=== PATIENT | female | born 1935 | race Caucasian/White ===

== ENCOUNTER → 2020-01-02 11:55 | Outpatient (BNVA) | payer MEDICARE, SELFPAY | PROVIDERS: Family Provider Family Medicine; PCP Family Medicine; Visit Provider Internal Medicine Cardiovascular Disease | DX: I50.33 Acute on chronic diastolic (congestive) heart failure (principal); R06.02 Shortness of breath; Z79.01 Long term (current) use of anticoagulants; Z95.2 Presence of prosthetic heart valve; R07.9 Chest pain, unspecified; I25.10 Atherosclerotic heart disease of native coronary artery without angina pectoris | CPT/HCPCS: 80048; 83880; 85025 ==

== ENCOUNTER 2020-01-18 12:07 | Outpatient (CLI) | payer MEDICARE, SELFPAY ==
--- NOTE | 2020-01-18 12:45 | USCV_ITS ---
Trinity Nassar Age: 84 Gender: F : 1935 Exam Date: 01/18/2020 12:32 Ordering Phys: Danilo Lam MD ([email or web address]) Technologist: Amee Shipley Exam Location: [facility] – [place] Indication: TAVR BP: / HR: 67 Rhythm: Other Technical Quality: Good MEASUREMENTS (Male / Female) Normal Values 2D ECHO LV Diastolic Diameter PLAX 4.4 cm 4.2 - 5.9 / 3.9 - 5.3 cm LV Systolic Diameter PLAX 2.7 cm LV Chamber Size 5.1 cm IVS Diastolic Thickness 1.2 cm 0.6 - 1.0 / 0.6 - 0.9 cm IVS Systolic Thickness 1.1 cm LVPW Diastolic Thickness 1.1 cm 0.6 - 1.0 / 0.6 - 0.9 cm LVPW Systolic Thickness 1.8 cm RV Chamber Size 4.1 cm LVOT Diameter 2.0 cm LV Ejection Fraction 2D Teich 69.1 % LV Ejection Fraction MOD 2C 73.5 % LV Ejection Fraction 2C AL 73.6 % LA Diameter 5.1 cm LA Width 3.4 cm LA Height 5.9 cm RA Width 4.9 cm RA Height 5.7 cm Aorta at Sinotubular Diameter 2.6 cm M-MODE LV Diastolic Diameter MM 5.3 cm 4.2 - 5.9 / 3.9 - 5.3 cm LV Systolic Diameter MM 3.7 cm LV Ejection Fraction MM Teich 57.6 % IVS Diastolic Thickness MM 1.0 cm 0.6 - 1.0 / 0.6 - 0.9 cm IVS Systolic Thickness MM 1.8 cm LVPW Diastolic Thickness MM 0.9 cm 0.6 - 1.0 / 0.6 - 0.9 cm LVPW Systolic Thickness MM 1.5 cm Aortic Annulus Diameter 2.6 cm LA Ao Ratio MM 1.9 MV E Point Septal Separation 0.8 cm DOPPLER AV Peak Velocity 244.0 cm/s LVOT Peak Velocity 103.0 cm/s AV Area Cont Eq vti 1.3 cm squared AV Area Cont Eq pk 1.3 cm squared MV Area PHT 3.2 cm squared Mitral E to A Ratio 2.5 MV E' Velocity 9.0 cm/s Mitral E to MV E' Ratio 14.0 Mitral E to LV E' Lateral Ratio 15.4 Mitral E to LV E' Septal Ratio 12.8 TR Peak Velocity 259.9 cm/s TR Peak Gradient 27.0 mmHg TR Mean Velocity 204.3 cm/s TR Mean Gradient 17.8 mmHg TR Velocity Time Integral 103.9 cm TV Peak E Velocity 73.0 cm/s Right Atrial Pressure 3.0 mmHg Pulmonary Artery Systolic Pressu 30.0 mmHg PV Peak Velocity 77.0 cm/s FINDINGS Left Ventricle Diffuse hypokinesia of the septum and anteroseptal segments. LV ejection fraction around 55%.Grade III/IV diastolic dysfunction (restrictive filling pattern), severely elevated filling pressures. Right Ventricle Normal right ventricular size and systolic function. Right Atrium Moderately increased right atrial size. Left Atrium Moderately increased left atrial size. Mitral Valve Thickened mitral valve. Moderate mitral annular calcification. Mild mitral valve regurgitation. Aortic Valve The bioprosthetic valve the aortic position appears to be well- seated with a peak velocity 2.44 m/s. The aortic valve area calculated to be 1.3 cm squared, based on the VTI Tricuspid Valve [id number] tricuspid valve regurgitation. Pulmonic Valve Thickened pulmonic valve. Mild pulmonary valve regurgitation. Pericardium No pericardial effusion. Aorta Normal aortic annulus size. CONCLUSIONS Diffuse hypokinesia of the septum and anteroseptal segments. LV ejection fraction around 55%. Grade III/IV diastolic dysfunction (restrictive filling pattern), severely elevated filling pressures. The bioprosthetic valve the aortic position appears to be well- seated with a peak velocity 2.44 m/s. The aortic valve area calculated to be 1.3 cm squared, based on the VTI. Moderate biatrial enlargement Thickened mitral valve. Moderate mitral annular calcification. Mild mitral valve regurgitation. [id number] tricuspid valve regurgitation. Thickened pulmonic valve. Mild pulmonary valve regurgitation. 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 Dr Danilo Lam MD FAC (Electronically Signed) Final Date: 18 January 2020 20:51 S
== END 2020-01-18 12:08 | disposition home or self-care (01) ==
LOC: US 12:08
PROVIDERS: PCP Family Medicine; Visit Provider Internal Medicine Cardiovascular Disease
DX: Z95.2 Presence of prosthetic heart valve (principal); R06.02 Shortness of breath; I50.9 Heart failure, unspecified; I08.3 Combined rheumatic disorders of mitral, aortic and tricuspid valves
CPT/HCPCS: 93306

== ENCOUNTER → 2020-02-01 10:38 | Outpatient (BNVA) | payer MEDICARE, SELFPAY | PROVIDERS: PCP Family Medicine; Referring Provider Dermatology; Visit Provider Dermatology | DX: L57.0 Actinic keratosis (principal); Z85.828 Personal history of other malignant neoplasm of skin; L73.8 Other specified follicular disorders; L72.0 Epidermal cyst; L82.1 Other seborrheic keratosis | CPT/HCPCS: 17000; 17003; 99203 ==

== ENCOUNTER → 2020-04-18 12:02 | Outpatient (BNVA) | payer MEDICARE, SELFPAY | PROVIDERS: Family Provider Family Medicine; PCP Family Medicine; Visit Provider Internal Medicine Cardiovascular Disease | DX: R06.02 Shortness of breath (principal); I50.33 Acute on chronic diastolic (congestive) heart failure; Z79.01 Long term (current) use of anticoagulants; Z95.2 Presence of prosthetic heart valve; R07.9 Chest pain, unspecified; I25.10 Atherosclerotic heart disease of native coronary artery without angina pectoris; I10 Essential (primary) hypertension; E78.5 Hyperlipidemia, unspecified | CPT/HCPCS: 80048; 83880 ==

== ENCOUNTER → 2020-05-06 09:17 | Outpatient (BNVA) | payer MEDICARE, SELFPAY | PROVIDERS: PCP Family Medicine; Visit Provider Internal Medicine Cardiovascular Disease | DX: I10 Essential (primary) hypertension (principal); I25.10 Atherosclerotic heart disease of native coronary artery without angina pectoris; R06.02 Shortness of breath; Z95.2 Presence of prosthetic heart valve | CPT/HCPCS: 80048; 83880 ==

== ENCOUNTER 2020-06-01 08:49 | Emergency (ER) | payer MEDICARE, SELFPAY ==
[2020-06-01 08:54] VITALS: BP 128/94; PULSE 113; RESP 18; TEMP 35.8; O2SAT 96; BMI 34.3
--- NOTE | 2020-06-01 08:57 | ED_ITS ---
HPI - Dental/Oral General: Chief complaint: Dental/Oral Stated complaint: MOUTH ABSCESS-COVID+ 2 WKS AGO/[facility] UP 24TH Time Seen by Provider: 06/01/20 08:56 Source: patient Mode of arrival: ambulatory Limitations: no limitations History of Present Illness: HPI Narrative: 84-year-old female comes in with left lower first molar dental pain. Patient also has a blister to the outside area of that tooth. Patient also noted some drainage that was blood-tinged from the area. Patient has been quarantined with diagnosis of Covid for the last 2 weeks. Patient reports no other concerns or symptoms. Review of Systems General: Reports: 10 or more systems reviewed and unremarkable except in HPI and below ENMT: Reports: oral sores PFSH ED PFSH: Medical History (Updated 06/01/20 @ 09:07 by RENY Rosario) Atherosclerosis of coronary artery of [place] heart without angina pectoris Benign essential HTN Dyslipidemia (high LDL; low HDL) History of nonmelanoma skin cancer SOB (shortness of breath) Surgical History H/O aortic valve replacement H/O: hysterectomy History of bladder repair surgery History of cataract removal with insertion of prosthetic lens Hx of CABG Hx of cholecystectomy Hx of total knee replacement S/P rotator cuff repair S/P TAVR (transcatheter aortic valve replacement) Family History Other CAD (coronary artery disease) Diabetes Social History Smoking and tobacco status: former smoker Alcohol intake: never Physical Exam Const: COMMON NORMALS: no acute distress and patient oriented x3 GENERAL APPEARANCE: cooperative HENMT: COMMON NORMALS: normocephalic, TM's normal bilaterally and Normal external nose present HEAD & SCALP: normal to inspection and normocephalic NOSE: Normal external nose present TYMPANIC MEMBRANE: TM's normal bilaterally MOUTH: Normal oral and palatal mucosa present and other (Gingival abscess noted to the first molar lateral side left lower jaw) THROAT: posterior oropharynx normal Eye: GENERAL EYE: appearance normal, both eyes and all related structures Neck/C-Spine: COMMON NORMALS: full ROM Lymph: LYMPHATIC: no lymphadenopathy noted Chest: COMMONS NORMALS: normal inspection of the chest Resp: COMMON NORMALS: normal respiratory effort EFFORT & INSPECTION: Yes able to speak in complete sentences Cardio: COMMON NORMALS: regular rate and regular rhythm RATE: regular rate RHYTHM: regular rhythm GI: COMMON NORMALS: non-tender Extremity: COMMON NORMALS: normal to inspection Neuro: COMMON NORMALS: patient oriented x3 and moves all extremities Psych: COMMON NORMALS: mental status grossly normal and cooperative Skin: COMMON NORMALS: no rashes or lesions noted GENERAL SKIN EXAM: no rashes or lesions noted Course Vital Signs: Vital signs: Vital Signs Temperature 96.4 F L 06/01/20 08:54 Pulse Rate 113 H 06/01/20 08:54 Respiratory Rate 18 06/01/20 08:54 Blood Pressure 128/94 06/01/20 08:54 Pulse Oximetry 96 06/01/20 08:54 MDM - Dental/Oral MDM Narrative: Medical decision making narrative: Patient comes in with a dental lesion and tenderness to the left lower jaw at the first molar. Vital signs are stable. Respirations are even. Lungs clear to auscultation. Heart rates regular. Differential diagnosis includes but not limited to dental abscess, odontalgia, dental caries. Exam notes dental abscess. Reviewed medications with patient she denies allergy to amoxicillin or Augmentin. Patient will be given Augmentin twice a day for 10 days. Patient was recom mended to follow-up with dentist for further evaluation and treatment. Patient reported understanding. Discharge Plan Discharge Patient Disposition: Home Clinical Impression: Abscess, periapical Condition: Stable Prescriptions: New Augmentin 875-125 mg tablet 1 tab PO BID Qty: 20 RF: 0 No Action nitroglycerin [Nitrostat] 0.4 mg tablet, sublingual 0.4 mg SUBLINGUAL Q5M PRNRF: 0 metformin 500 mg tablet 500 mg PO DAILY RF: 0 pioglitazone 30 mg tablet 30 mg PO DAILY RF: 0 montelukast 10 mg tablet 10 mg PO DAILY RF: 0 Prilosec OTC 20 mg tablet,delayed release (DR/EC) 20 mg PO DAILY RF: 0 albuterol sulfate [ProAir HFA] 90 mcg/actuation HFA aerosol inhaler 2 puff INHALATION Q6H PRNRF: 0 fluticasone propionate [Flonase Allergy Relief] 50 mcg/actuation spray,suspension 2 spray INTRANASAL DAILY RF: 0 levothyroxine [Synthroid] 125 mcg tablet 125 mcg PO DAILY RF: 0 venlafaxine [Effexor XR] 75 mg capsule,extended release 24hr 75 mg PO DAILY RF: 0 Lantus U-100 Insulin 100 unit/mL solution 100 unit SUBCUT DAILY RF: 0 rosuvastatin 5 mg tablet 5 mg PO DAILY Qty: 90 RF: 3 losartan 100 mg tablet 100 mg PO DAILY Qty: 90 RF: 3 amlodipine 10 mg tablet 10 mg PO DAILY Qty: 90 RF: 3 fenofibrate nanocrystallized 145 mg tablet 145 mg PO DAILY Qty: 90 RF: 3 warfarin 3 mg tablet 3 mg PO DAILY RF: 0 metoprolol tartrate 25 mg tablet 25 mg PO BID Qty: 180 RF: 3 furosemide 80 mg tablet 80 mg PO DAILY Qty: 90 RF: 0 potassium chloride 10 mEq capsule, extended release 20 meq PO BID Qty: 120 RF: 3 Bystolic 5 mg tablet 5 mg PO DAILY Qty: 90 RF: 3 Discharge Orders: Discharge ED (Routine); Ordered 06/01/20 Ordered By: John Stewart Referrals: Stephon Lassiter MD [Primary Care Provider] - Discharge Diet: Usual diet Discharge Activity: Increase activity as tolerated Patient Instructions: Dental Abscess (ED) Activity Restrictions/Additional Instructions: Take medication with food on stomach twice a day for the next 10 days. Follow- up with dentist for further treatment and evaluation. Drink plenty of water with medications. Use acetaminophen or ibuprofen as needed for pain. Return to the emergency department for new concerns. Coding Level of Care Code ED Septic Tank Service Technician for Ashlie Tang
[2020-06-01] MEDS: amoxicillin-clav 875-125 mg Tablet 1 TAB PO (09:41)
[2020-06-01 09:49] VITALS: RESP 18
== END 2020-06-01 09:45 | disposition home or self-care (01) ==
LOC: ER 09:15
PROVIDERS: Emergency Provider Nurse Practitioner Family; PCP Family Medicine
DX: K04.7 Periapical abscess without sinus (principal); Z79.01 Long term (current) use of anticoagulants; Z79.4 Long term (current) use of insulin; I25.10 Atherosclerotic heart disease of native coronary artery without angina pectoris; I10 Essential (primary) hypertension; E78.5 Hyperlipidemia, unspecified; Z95.1 Presence of aortocoronary bypass graft; Z87.891 Personal history of nicotine dependence
CPT/HCPCS: 12345; 99281; 99282

== ENCOUNTER 2021-05-24 10:25 | Emergency (ER) | payer MEDICARE, SELFPAY ==
[2021-05-24 10:41] VITALS: PULSE 94; RESP 18; O2SAT 97; BMI 34.3
[2021-05-24 10:50] VITALS: PULSE 94; RESP 18; O2SAT 97
--- NOTE | 2021-05-24 11:48 | W.ED.GENADLT ---
Documented by User: RENY Hirsch 05/24/21 13:14 HPI - General Adult General: Chief complaint: General Medical Stated complaint: SENT FROM DR LASSITER FOR THIN BLOOD Time Seen by Provider: 05/24/21 10:51 History of Present Illness: HPI narrative: Patient presents with INR that is high as per Dr. Lassiter's office. Patient has been off her Coumadin for 4 days. INR last checked yesterday. Patient also has a wound to her right lower leg she like to have checked out. Denies any other current problems. Onset (ago): day(s) Associated symptoms: Deny chest pain, dyspnea, headache(s), nausea, rash or vomiting Review of Systems Narrative: Patient with a high INR Const: Denies: fever(s), chills or body aches Eyes: Denies: change in vision or blurry vision ENMT: Denies: throat pain or nasal congestion Card: Denies: chest pain or dyspnea on exertion Resp: Denies: dyspnea, productive cough or non-productive cough GI: Denies: abdominal pain, nausea or vomiting Musc: Denies: extremity pain Skin/Breast: Reports: erythema (Right lower extremity from her dog striking her quiñones with his Paw); Denies: rash Neuro: Denies: headache(s) Psych: Denies: anxiety or depression Jackson/Lymph: Denies: easy bruising PFSH ED PFSH: Medical History (Updated 05/24/21 @ 13:11 by RENY Hirsch) Atherosclerosis of coronary artery of [place] heart without angina pectoris Benign essential HTN Dyslipidemia (high LDL; low HDL) History of nonmelanoma skin cancer SOB (shortness of breath) Surgical History H/O aortic valve replacement H/O: hysterectomy History of bladder repair surgery History of cataract removal with insertion of prosthetic lens Hx of CABG Hx of cholecystectomy Hx of total knee replacement S/P rotator cuff repair S/P TAVR (transcatheter aortic valve replacement) Family History Father CAD (coronary artery disease) Chronic kidney disease (CKD) Diabetes Mother CAD (coronary artery disease) Cancer Sister Diabetes Brother Diabetes Denies family history of Clotting disorder Dementia Suicide Anesthesia complication Bleeding disorder Lung disease Stroke Social History Smoking and tobacco status: never smoked Alcohol intake: never Physical Exam Const: COMMON NORMALS: no acute distress GENERAL APPEARANCE: cooperative Resp: COMMON NORMALS: normal respiratory effort Neuro: COMMON NORMALS: moves all extremities Skin: OTHER: Mild redness around wound on right quiñones. No erythema noted. Small hemorrhage of blood vessel surrounding the wound. Wound approximately 4 mm in width and 1 cm in length and has thickened scab Course Vital Signs: Vital signs: Vital Signs Pulse Rate 94 05/24/21 13:41 Respiratory Rate 18 05/24/21 13:41 Pulse Oximetry 97 05/24/21 13:41 MDM - General Adult MDM Narrative: Medical decision making narrative: Patient referred to the ER for elevated INR. Patient has no evidence of any bleeding. Lab was not able to obtain a blood sample on her despite repeated attempts by the lab and by nursing staff. Obtain INR from [facility] which was done on 1209 which showed an INR is 17. Patient has been off her Coumadin for 4 days. Patient was given per chest guidelines 2.5 mg of vitamin K orally and told to stay off of Coumadin until restarted by Dr. Lassiter and she is ready return to his office on Wednesday for reevaluation of INR. Patient also has an abrasion to her right lower extremity which was treated with antibiotic and advisement of put Vaseline on it. Lab Data: Labs: Lab Results 05/24/21 05/24/21 12:28 12:30 WBC 6.2 10^3/uL 10^3/ uL (4.0-10.0) RBC 4.34 10^6/uL 10^6 /uL (4.1-5.3) Hgb 12.3 g/dL g/dL (11.5-15.3) Hct 38.2 % % (37.0-47.0) MCV 88.0 fl fl (81-99) MCH 28.3 pg pg (28.0-34.0) MCHC 32.2 g/dL g/dL (30.0-36.0) RDW 17.1 % H % (12.1-15.1) Plt Count 228 10^3/cmm 10^3 /cmm (130-400) MPV 10.3 fL fL (7.4-10.4) Neut % (Auto) 65.7 % % Lymph % (Auto) 17.6 % % [place] % (Auto) 12.3 % % Eos % (Auto) 2.9 % % Baso % (Auto) 1.0 % % Neut # (Auto) 4.07 10^3/uL 10^3 /uL (1.8-7.7) Lymph # (Auto) 1.1 10^3/uL 10^3/ uL (0.8-4.8) [place] # (Auto) 0.8 10^3/uL 10^3/ uL (0.2-0.9) Eos # (Auto) 0.2 10^3/uL 10^3/ uL (0.0-0.8) Baso # (Auto) 0.1 10^3/uL 10^3/ uL (0.0-0.1) Nucleated RBC % (a uto) 0 % % Nucleated RBCs # 0.0 /100WBC /100W BC Vitamin K Cancelled Discharge Plan Discharge Patient Disposition: Home Clinical Impression: Elevated INR, Abrasion Condition: Stable Prescriptions: New clindamycin HCl 300 mg capsule 300 mg PO Q8H 7 Days Qty: 21 RF: 0 No Action metformin 500 mg tablet 500 mg PO DAILY RF: 0 pioglitazone 30 mg tablet 30 mg PO DAILY RF: 0 montelukast 10 mg tablet 10 mg PO DAILY RF: 0 Prilosec OTC 20 mg tablet,delayed release (DR/EC) 20 mg PO DAILY RF: 0 albuterol sulfate [ProAir HFA] 90 mcg/actuation HFA aerosol inhaler 2 puff INHALATION Q6H PRNRF: 0 fluticasone propionate [Flonase Allergy Relief] 50 mcg/actuation spray,suspension 2 spray INTRANASAL DAILY RF: 0 levothyroxine [Synthroid] 125 mcg tablet 125 mcg PO DAILY RF: 0 venlafaxine [Effexor XR] 75 mg capsule,extended release 24hr 75 mg PO DAILY RF: 0 Lantus U-100 Insulin 100 unit/mL solution 100 unit SUBCUT DAILY RF: 0 nebivolol 5 mg tablet 5 mg PO DAILY Qty: 90 RF: 3 nitroglycerin [Nitrostat] 0.4 mg tablet, sublingual 0.4 mg SUBLINGUAL Q5M PRN (Reason: chest pain) Qty: 50 RF: 1 rosuvastatin 5 mg tablet 5 mg PO DAILY Qty: 90 RF: 3 warfarin 3 mg tablet 3 mg PO DAILY Qty: 90 RF: 3 fenofibrate nanocrystallized 145 mg tablet See Rx Instructions .ROUTE .COMPLEX Qty: 90 RF: 3 furosemide 80 mg tablet 80 mg PO DAILY Qty: 90 RF: 3 metoprolol tartrate 25 mg tablet 25 mg PO BID Qty: 180 RF: 3 amlodipine 10 mg tablet 10 mg PO DAILY Qty: 90 RF: 3 losartan 100 mg tablet 100 mg PO DAILY Qty: 90 RF: 3 Discharge Orders: Discharge ED (Routine); Ordered 05/24/21 Ordered By: Neeraj Mackay Referrals: Stephon Lassiter MD [Primary Care Provider] - Discharge Diet: Usual diet Discharge Activity: Resume usual activity Patient Instructions: Abrasion (ED) Activity Restrictions/Additional Instructions: Stay off Coumadin until Dr. Lassiter decides to put you back on that. Contact his office on Wednesday and get a repeat INR blood test done. If you have any signs of bleeding please return the ER or contact Dr. Lassiter's office. Put petroleum jelly and/or Vaseline on the right lower extremity do not put triple antibiotic on it. Coding Level of Care Code ED Sales Relationship Manager for Chg Fwd Exam Expanded Problem Focused Documented by User: Josue Luna DO 05/26/21 07:09 HPI - General Adult General: Chief complaint: General Medical Stated complaint: SENT FROM DR LASSITER FOR THIN BLOOD Time Seen by Provider: 05/24/21 10:51 [facility] ED PFSH: Medical History (Updated 05/24/21 @ 13:11 by RENY Hirsch) Atherosclerosis of coronary artery of [place] heart without angina pectoris Benign essential HTN Dyslipidemia (high LDL; low HDL) History of nonmelanoma skin cancer SOB (shortness of breath) Surgical History H/O aortic valve replacement H/O: hysterectomy History of bladder repair surgery History of cataract removal with insertion of prosthetic lens Hx of CABG Hx of cholecystectomy Hx of total knee replacement S/P rotator cuff repair S/P TAVR (transcatheter aortic valve replacement) Family History Father CAD (coronary artery disease) Chronic kidney disease (CKD) Diabetes Mother CAD (coronary artery disease) Cancer Sister Diabetes Brother Diabetes Denies family history of Clotting disorder Dementia Suicide Anesthesia complication Bleeding disorder Lung disease Stroke Social History Smoking and tobacco status: never smoked Alcohol intake: never Course Vital Signs: Vital signs: Vital Signs Pulse Rate 94 05/24/21 13:41 Respiratory Rate 18 05/24/21 13:41 Pulse Oximetry 97 05/24/21 13:41 MDM - General Adult MDM Narrative: Medical decision making narrative: Chart reviewed and patient discussed with midlevel. Agree with assessment and plan. Lab Data: Labs: Lab Results 05/24/21 05/24/21 12:28 12:30 WBC 6.2 10^3/uL 10^3/ uL (4.0-10.0) RBC 4.34 10^6/uL 10^6 /uL (4.1-5.3) Hgb 12.3 g/dL g/dL (11.5-15.3) Hct 38.2 % % (37.0-47.0) MCV 88.0 fl fl (81-99) MCH 28.3 pg pg (28.0-34.0) MCHC 32.2 g/dL g/dL (30.0-36.0) RDW 17.1 % H % (12.1-15.1) Plt Count 228 10^3/cmm 10^3 /cmm (130-400) MPV 10.3 fL fL (7.4-10.4) Neut % (Auto) 65.7 % % Lymph % (Auto) 17.6 % % [place] % (Auto) 12.3 % % Eos % (Auto) 2.9 % % Baso % (Auto) 1.0 % % Neut # (Auto) 4.07 10^3/uL 10^3 /uL (1.8-7.7) Lymph # (Auto) 1.1 10^3/uL 10^3/ uL (0.8-4.8) [place] # (Auto) 0.8 10^3/uL 10^3/ uL (0.2-0.9) Eos # (Auto) 0.2 10^3/uL 10^3/ uL (0.0-0.8) Baso # (Auto) 0.1 10^3/uL 10^3/ uL (0.0-0.1) Nucleated RBC % (a uto) 0 % % Nucleated RBCs # 0.0 /100WBC /100W BC Vitamin K Cancelled Discharge Plan Discharge Patient Disposition: Home Clinical Impression: Elevated INR, Abrasion Condition: Stable Prescriptions: New clindamycin HCl 300 mg capsule 300 mg PO Q8H 7 Days Qty: 21 RF: 0 No Action metformin 500 mg tablet 500 mg PO DAILY RF: 0 pioglitazone 30 mg tablet 30 mg PO DAILY RF: 0 montelukast 10 mg tablet 10 mg PO DAILY RF: 0 Prilosec OTC 20 mg tablet,delayed release (DR/EC) 20 mg PO DAILY RF: 0 albuterol sulfate [ProAir HFA] 90 mcg/actuation HFA aerosol inhaler 2 puff INHALATION Q6H PRNRF: 0 fluticasone propionate [Flonase Allergy Relief] 50 mcg/actuation spray,suspension 2 spray INTRANASAL DAILY RF: 0 levothyroxine [Synthroid] 125 mcg tablet 125 mcg PO DAILY RF: 0 venlafaxine [Effexor XR] 75 mg capsule,extended release 24hr 75 mg PO DAILY RF: 0 Lantus U-100 Insulin 100 unit/mL solution 100 unit SUBCUT DAILY RF: 0 nebivolol 5 mg tablet 5 mg PO DAILY Qty: 90 RF: 3 nitroglycerin [Nitrostat] 0.4 mg tablet, sublingual 0.4 mg SUBLINGUAL Q5M PRN (Reason: chest pain) Qty: 50 RF: 1 rosuvastatin 5 mg tablet 5 mg PO DAILY Qty: 90 RF: 3 warfarin 3 mg tablet 3 mg PO DAILY Qty: 90 RF: 3 fenofibrate nanocrystallized 145 mg tablet See Rx Instructions .ROUTE .COMPLEX Qty: 90 RF: 3 furosemide 80 mg tablet 80 mg PO DAILY Qty: 90 RF: 3 metoprolol tartrate 25 mg tablet 25 mg PO BID Qty: 180 RF: 3 amlodipine 10 mg tablet 10 mg PO DAILY Qty: 90 RF: 3 losartan 100 mg tablet 100 mg PO DAILY Qty: 90 RF: 3 Discharge Orders: Discharge ED (Routine); Ordered 05/24/21 Ordered By: Neeraj Mackay Referrals: Stephon Lassiter MD [Primary Care Provider] - Discharge Diet: Usual diet Discharge Activity: Resume usual activity Patient Instructions: Abrasion (ED) Activity Restrictions/Additional Instructions: Stay off Coumadin until Dr. Lassiter decides to put you back on that. Contact his office on Wednesday and get a repeat INR blood test done. If you have any signs of bleeding please return the ER or contact Dr. Lassiter's office. Put petroleum jelly and/or Vaseline on the right lower extremity do not put triple antibiotic on it. Coding Level of Care Code ED Sales Relationship Manager for Ashlie Fwd Exam Expanded Problem Focused
[2021-05-24 12:33] LABS: Basophils # 0.1 10^3/uL (0.0-0.1); Eosinophils # 0.2 10^3/uL (0.0-0.8); Eosinophils % 2.9 %; Hematocrit 38.2 % (37.0-47.0); Hemoglobin 12.3 g/dL (11.5-15.3); Lymphocytes # 1.1 10^3/uL (0.8-4.8); Lymphocytes % 17.6 %; Mean Corpuscular HGB Conc 32.2 g/dL (30.0-36.0); Mean Corpuscular Hemoglobin 28.3 pg (28.0-34.0); Mean Platelet Volume 10.3 fL (7.4-10.4); Monocytes # 0.8 10^3/uL (0.2-0.9); Monocytes % 12.3 %; Neutrophils # 4.07 10^3/uL (1.8-7.7); Neutrophils % 65.7 %; Nucleated Red Blood Cells % 0 %; Platelet Count 228 10^3/cmm (130-400); Red Blood Count 4.34 10^6/uL (4.1-5.3); Red Cell Distribution Width 17.1 % (12.1-15.1); White Blood Count 6.2 10^3/uL (4.0-10.0)
[2021-05-24] MEDS: clindamycin 150 mg Capsule PO (13:22)
[2021-05-24] MEDS: phytonadione (ADULT) 10 mg/mL Ampule 1 mL 2.5 MG PO (13:23)
[2021-05-24 13:41] VITALS: PULSE 94; RESP 18; O2SAT 97
== END 2021-05-24 13:41 | disposition home or self-care (01) ==
PROVIDERS: Emergency Provider Nurse Practitioner Family; PCP Family Medicine
DX: R79.89 Other specified abnormal findings of blood chemistry (principal); S80.811A Abrasion, right lower leg, initial encounter; I25.10 Atherosclerotic heart disease of native coronary artery without angina pectoris; I10 Essential (primary) hypertension; E78.5 Hyperlipidemia, unspecified; Z95.1 Presence of aortocoronary bypass graft; X58.XXXA Exposure to other specified factors, initial encounter; Z79.01 Long term (current) use of anticoagulants; Z79.84 Long term (current) use of oral hypoglycemic drugs; Z79.4 Long term (current) use of insulin
CPT/HCPCS: 36415; 85025; 99283; J3430

== ENCOUNTER 2021-06-14 06:00 | Outpatient (RCR) | payer MEDICARE, SELFPAY | END 2021-07-14 23:59 | disposition home or self-care (01) | LOC: SOT 06:00 | PROVIDERS: PCP Family Medicine; Referring Provider Family Medicine; Visit Provider Family Medicine | DX: R26.81 Unsteadiness on feet (principal) | CPT/HCPCS: 97167; 97530 ==

== ENCOUNTER 2021-07-10 13:50 | Outpatient (CLI) | payer MEDICARE, SELFPAY ==
--- NOTE | 2021-07-10 14:00 | USCV_ITS ---
Trinity Nassar Age: 85 Gender: F : 1935 Exam Date: 07/10/2021 14:06 Ordering Phys: Stephon Lassiter MD Technologist: [place] [facility] [place]: CHF BP: 118 / 62 HR: 86 Rhythm: Other Technical Quality: Adequate MEASUREMENTS (Male / Female) Normal Values 2D ECHO LV Diastolic Diameter PLAX 4.8 cm 4.2 - 5.9 / 3.9 - 5.3 cm LV Systolic Diameter PLAX 3.4 cm IVS Diastolic Thickness 1.4 cm 0.6 - 1.0 / 0.6 - 0.9 cm IVS Systolic Thickness 1.2 cm LVPW Diastolic Thickness 1.2 cm 0.6 - 1.0 / 0.6 - 0.9 cm LVPW Systolic Thickness 1.8 cm LV Ejection Fraction 2D Teich 54.2 % LV Ejection Fraction MOD 2C 67.2 % LV Ejection Fraction 2C AL 67.6 % LA Diameter 4.7 cm LA Width 5.1 cm LA Height 6.9 cm RA Width 5.3 cm RA Height 4.9 cm Aorta at Sinotubular Diameter 2.3 cm M-MODE MV E Point Septal Separation 0.7 cm DOPPLER AV Peak Velocity 272.0 cm/s LVOT Peak Velocity 77.0 cm/s MV Peak Velocity 89.0 cm/s MV Area PHT 5.6 cm squared Mitral E to A Ratio 2.2 MV E' Velocity 80.0 cm/s TR Peak Velocity 195.0 cm/s TR Peak Gradient 15.2 mmHg TR Mean Velocity 147.0 cm/s TR Mean Gradient 9.4 mmHg TR Velocity Time Integral 57.6 cm TV Peak E Velocity 86.0 cm/s Right Atrial Pressure 3.0 mmHg Pulmonary Artery Systolic Pressu 18.2 mmHg PV Peak Velocity 100.0 cm/s RV Acceleration Time 0.0 s RV Ejection Time 0.3 s RV AcT/ET 0.1 FINDINGS Left Ventricle Normal left ventricular size and systolic function, EF 67 %. Hypokinetic basal inferior wall segment Right Ventricle The right ventricle is normal in size and function. Right Atrium Moderately increased right atrial size. Left Atrium Moderately increased left atrial size. Mitral Valve Thickened mitral valve. Moderate mitral annular calcification. Mild mitral valve regurgitation. Aortic Valve The bioprosthetic valve at the aortic position appears to be well-seated. Peak velocity the aortic valve was 2.72 m/s. Peak gradient of 29 mmHg. Suggesting moderate aortic valve stenosis. The valve area was not calculated Tricuspid Valve Moderate tricuspid valve regurgitation. Pulmonic Valve Mild pulmonary valve regurgitation. Thickened pulmonic valve Pericardium Prominent coronary sinus Aorta Normal aortic annulus size. CONCLUSIONS Normal left ventricular size and systolic function, EF 67 %. Hypokinetic basal inferior wall segment. Moderate biatrial enlargement. Thickened mitral valve. Moderate mitral annular calcification. Mild mitral valve regurgitation. The bioprosthetic valve at the aortic position appears to be well-seated. Peak velocity the aortic valve was 2.72 m/s with a peak gradient of 29 mmHg Moderate tricuspid regurgitation. Thickened pulmonic valve Normal estimated PA pressure, could be misleading because of the poor Doppler signal Compared to the study from 01/18/2020, there is slight increase in the gradient across the aortic valve. Dr Danilo Lam MD [facility] (Electronically Signed) Final Date: 11 July 2021 00:55 S
== END 2021-07-10 13:51 | disposition home or self-care (01) ==
LOC: RAD 13:54
PROVIDERS: PCP Family Medicine; Visit Provider Family Medicine
DX: I50.9 Heart failure, unspecified (principal); Z95.2 Presence of prosthetic heart valve; I08.1 Rheumatic disorders of both mitral and tricuspid valves
CPT/HCPCS: 93306

== ENCOUNTER → 2021-09-02 14:35 | Outpatient (BNVA) | payer MEDICARE, SELFPAY | PROVIDERS: PCP Family Medicine; Visit Provider Nurse Practitioner Family | DX: I48.91 Unspecified atrial fibrillation (principal); I10 Essential (primary) hypertension; I25.810 Atherosclerosis of coronary artery bypass graft(s) without angina pectoris; Z95.2 Presence of prosthetic heart valve; Z87.891 Personal history of nicotine dependence | CPT/HCPCS: 99214 ==

== ENCOUNTER 2021-11-25 06:00 | Outpatient (CLI) | payer MEDICARE, SELFPAY ==
[2021-11-25 13:47] LABS: Add Urine Microscopic? NO; Charge for UA Resulting for Rev
[2021-11-25 14:47] LABS: Bilirubin Urine Neg (Negative); Blood Urine Neg (Negative); Glucose Urine UA Norm (Normal); Ketones Urine Negative (Negative); Leukocyte Esterase Urine Negative (Negative); Nitrate Urine Negative (Negative); Protein Urine Neg (Negative); Specific Gravity, Urine 1.005 (1.005-1.030); Urine Appearance Clear (CLEAR); Urine Color Straw (Yellow); Urobilinogen Urine Norm (Negative); pH Urine 5 (5-7)
== END 2021-11-25 06:01 | disposition home or self-care (01) ==
LOC: LAB 03-23 20:17
PROVIDERS: PCP Family Medicine; Visit Provider Family Medicine
DX: R82.79 Other abnormal findings on microbiological examination of urine (principal)
CPT/HCPCS: 81003; 87086

== ENCOUNTER 2022-01-04 13:35 | Inpatient (IN) | payer MEDICARE, SELFPAY ==
[2022-01-04] VITALS (7 sets, daily range): BP systolic 125–160; BP diastolic 71–98; PULSE 99–117; RESP 16–24; TEMP 36.4–36.6; O2SAT 94–100; BMI 42.0
--- NOTE | 2022-01-04 14:09 | CTR_ITS ---
PROCEDURE INFORMATION: Exam: CT Head Without Contrast Exam date and time: 01/04/2022 4:46 PM Age: 86 years old Clinical indication: Altered mental status/memory loss; Additional info: AMS TECHNIQUE: Imaging protocol: Computed tomography of the head without contrast. Radiation optimization: All CT scans at this facility use at least one of these dose optimization techniques: automated exposure control; mA and/or kV adjustment per patient size (includes targeted exams where dose is matched to clinical indication); or iterative reconstruction. COMPARISON: CT head wo con* [id number] 02/26/2017 6:38 PM RADIATION DOSE METRICS: Total DLP (mGy-cm): 1063.78 FINDINGS: Brain: Severe calcified intracranial atherosclerotic vessel disease. Mild cerebral atrophy and ischemic leukoencephalopathy. Cerebral ventricles: No ventriculomegaly. Paranasal sinuses: Visualized sinuses are unremarkable. No fluid levels. Mastoid air cells: Visualized mastoid air cells are well aerated. Bones/joints: Unremarkable. No acute fracture. Soft tissues: Unremarkable. CT/CT head wo con* [id number] IMPRESSION: No acute intracranial findings.
--- NOTE | 2022-01-04 14:09 | XRR_ITS ---
PROCEDURE INFORMATION: Exam: XR Chest Exam date and time: 01/04/2022 4:36 PM Age: 86 years old Clinical indication: Other: AMS TECHNIQUE: Imaging protocol: Radiologic exam of the chest. Views: 1 view. COMPARISON: CR Chest 1 [place] [id number] 08/24/2018 1:43 PM FINDINGS: Lungs: Interval development of mild interstitial pulmonary edema. Interval development of compressive atelectasis in the right lower lobe. Pleural spaces: Interval development of a moderate right pleural effusion with pleural fluid extending along the right lateral hemithorax. No pneumothorax. Heart/Mediastinum: Cardiac silhouette is moderately enlarged. Mediastinal contours are unremarkable. Vasculature: Atherosclerotic changes in the visualized arteries. Bones/joints: Unremarkable for age. Organs: Surgical clips in the right upper quadrant, consistent with a previous cholecystectomy. XR/XR chest 1V portable [id number] IMPRESSION: 1. Interval development of mild interstitial pulmonary edema with a moderate right pleural effusion with pleural fluid extending along the right lateral hemithorax and compressive atelectasis in the right lower lobe. 2. Incidental/nonacute findings are listed in the report.
[2022-01-04 14:27] LABS: Glucose Point of Care 91 mg/dL (70-110)
--- NOTE | 2022-01-04 14:33 | W.ED.AMS ---
HPI - Altered Mental Status General: Chief Complaint: Altered Mental Status Stated Complaint: AMS; TINO WEEPING EDEMA LOWER EXT Time Seen by Provider: 01/04/22 13:38 History of Present Illness: Patient is brought in by family with concerns for swelling and redness of both legs as well as increasing mental status changes. States that she has been declining healthwise for a while but over the last 3 days her mental status is significantly declined and she is now becoming more confused throughout the day. Per her son her legs have also changed significantly in the last couple of days. He states the redness and swelling is new and significantly worse today than it was 2 days ago. Review of Systems Const: Denies: fever(s) or body aches Eyes: Denies: change in vision or blurry vision ENMT: Denies: throat pain or odynophagia Card: Denies: chest pain or palpitations Resp: Denies: dyspnea or productive cough GI: Denies: abdominal pain, nausea or vomiting : Denies: flank pain or dysuria Musc: Denies: neck pain or back pain Skin/Breast: Denies: rash or pruritus Neuro: Denies: headache(s) or numbness in extremities Psych: Denies: anxiety or change in appetite Endo: Denies: polyuria or excessive sweating PFSH ED PFSH: Medical History (Updated 01/04/22 @ 17:33 by Faheem Rodriguez MD) Atherosclerosis of coronary artery of [place] heart without angina pectoris Benign essential HTN Dyslipidemia (high LDL; low HDL) History of nonmelanoma skin cancer SOB (shortness of breath) Surgical History H/O aortic valve replacement H/O: hysterectomy History of bladder repair surgery History of cataract removal with insertion of prosthetic lens Hx of CABG Hx of cholecystectomy Hx of total knee replacement S/P rotator cuff repair S/P TAVR (transcatheter aortic valve replacement) Family History Father CAD (coronary artery disease) Chronic kidney disease (CKD) Diabetes Mother CAD (coronary artery disease) Cancer Sister Diabetes Brother Diabetes Denies family history of Clotting disorder Dementia Suicide Anesthesia complication Bleeding disorder Lung disease Stroke Social History Smoking and tobacco status: former smoker Alcohol intake: never Physical Exam Const: COMMON NORMALS: no acute distress OTHER: Patient is awake, she is oriented x1 with some confusion HENMT: COMMON NORMALS: normocephalic and atraumatic HEAD & SCALP: normocephalic and atraumatic Eye: COMMON NORMALS: Equal, round and reactive pupils present and EOMs intact bilaterally PUPIL: Yes Equal, round and reactive pupils present Neck/C-Spine: COMMON NORMALS: full ROM and supple Resp: COMMON NORMALS: normal respiratory effort, No retractions and No use of accessory muscles Cardio: COMMON NORMALS: regular rhythm RHYTHM: regular rhythm OTHER: Tachycardia GI: COMMON NORMALS: Normal to inspection, nondistended, normoactive bowel sounds present, Soft to palpation and non-tender PALPATION: Yes Soft to palpation Back/Pelvis: COMMON NORMALS: thoracic and lumbar spine normal to inspection and no thoracic nor lumbar tenderness Extremity: COMMON NORMALS: normal to inspection and full ROM Skin: NARRATIVE SKIN EXAM: Pitting edema of bilateral lower extremities with erythema of bilateral lower legs that is weeping and hot to touch Course Vital Signs: Vital signs: Vital Signs Temperature 97.6 F 01/04/22 13:39 Pulse Rate 117 H 01/04/22 17:00 Respiratory Rate 22 H 01/04/22 17:00 Blood Pressure 150/86 01/04/22 16:01 Pulse Oximetry 98 01/04/22 17:00 MDM - Altered Mental Status Medical Decision Making Patient is brought in by family with concerns for swelling and redness of both legs as well as increasing mental status changes. States that she has been declining healthwise for a while but over the last 3 days her mental status is significantly declined and she is now becoming more confused throughout the day. Per her son her legs have also changed significantly in the last couple of days. He states the redness and swelling is new and significantly worse today than it was 2 days ago. On physical exam the patient is awake but confused. She is oriented to person. She has swelling, erythema, and weeping of bilateral lower extremities. Her lower legs are somewhat warm to touch. She is mildly tachycardic and has dry mucous membranes. Will check labs, CT, x-ray, and reassess. On reassessment I talked to the patient's family about the test results. I discussed the case with the hospitalist, and we will start antibiotics for likely cellulitis, and admit for further work-up and treatment of her cellulitis, and altered mental status. Lab Data : 01/04/22 15:48 01/04/22 15:48 Laboratory Results WBC 12.5 10^3/uL (4.0-10.0) H 01/04/22 15:48 RBC 3.24 10^6/uL (4.1-5.3) L 01/04/22 15:48 Hgb 9.7 g/dL (11.5-15.3) L 01/04/22 15:48 Hct 30.1 % (37.0-47.0) L 01/04/22 15:48 MCV 92.9 fl (81-99) 01/04/22 15:48 MCH 29.9 pg (28.0-34.0) 01/04/22 15:48 MCHC 32.2 g/dL (30.0-36.0) 01/04/22 15:48 RDW 18.5 % (12.1-15.1) H 01/04/22 15:48 Plt Count 398 10^3/cmm (130-400) 01/04/22 15:48 MPV 9.1 fL (7.4-10.4) 01/04/22 15:48 Neut % (Auto) 82.1 % 01/04/22 15:48 Lymph % (Auto) 6.3 % 01/04/22 15:48 Pershing % (Auto) 10.6 % 01/04/22 15:48 Eos % (Auto) 0.2 % 01/04/22 15:48 Baso % (Auto) 0.4 % 01/04/22 15:48 Neut # (Auto) 10.21 10^3/uL (1.8-7.7) H 01/04/22 15:48 Lymph # (Auto) 0.8 10^3/uL (0.8-4.8) 01/04/22 15:48 Pershing # (Auto) 1.3 10^3/uL (0.2-0.9) H 01/04/22 15:48 Eos # (Auto) 0.0 10^3/uL (0.0-0.8) 01/04/22 15:48 Baso # (Auto) 0.1 10^3/uL (0.0-0.1) 01/04/22 15:48 Nucleated RBC % (auto) 0 % 01/04/22 15:48 Nucleated RBCs # 0.0 /100WBC 01/04/22 15:48 Specimen Type Arterial 01/04/22 15:14 Sample Site Radial, right 01/04/22 15:14 ABG pH 7.41 (7.35-7.45) 01/04/22 15:14 ABG pCO2 46.7 mmHg (35-45) H 01/04/22 15:14 ABG pO2 210.0 mmHg (80.0-100.0) H 01/04/22 15:14 ABG HCO3 29.8 mmol/L (22-26) H 01/04/22 15:14 ABG Base Excess 4.6 mmol/L (-2.0-2.0) H 01/04/22 15:14 Yon Test Pos 01/04/22 15:14 Hematocrit 29.2 % (37-47) L 01/04/22 15:14 O2 Delivery Device Nc 01/04/22 15:14 O2 Liters/Min 5.0 % 01/04/22 15:14 FiO2 40.0 % 01/04/22 15:14 Slitter Scorer Cut Off Operator ID Ed 01/04/22 15:14 Sodium 134 mmol/L (136-145) L 01/04/22 15:48 Potassium 5.2 mmol/L (3.5-5.1) H 01/04/22 15:48 Chloride 94 mmol/L (98-107) L 01/04/22 15:48 Carbon Dioxide 27 mmol/L (22-29) 01/04/22 15:48 Anion Gap 18.2 (5-19) 01/04/22 15:48 BUN 77 mg/dL (8-23) H 01/04/22 15:48 Creatinine 1.5 mg/dL (0.5-0.9) H 01/04/22 15:48 GFR Calculation Not Reportable 01/04/22 15:48 Glucose 103 mg/dL (65-115) 01/04/22 15:48 POC Glucose 91 mg/dL (70-110) 01/04/22 14:23 Calculated Osmolality 301 mOsm/kg (285-295) H 01/04/22 15:48 Calcium 10.9 mg/dL (8.5-10.5) H 01/04/22 15:48 Magnesium 2.2 mg/dL (1.7-2.3) 01/04/22 15:48 Total Bilirubin 0.9 mg/dL (0.15-1.2) 01/04/22 15:48 AST 36 U/L (0-32) H 01/04/22 15:48 ALT 13 U/L (0-33) 01/04/22 15:48 Alkaline Phosphatase 80 IU/L (35-105) 01/04/22 15:48 Ammonia 28 umol/L (11-51) 01/04/22 17:08 Total Protein 8.1 g/dL (6.6-8.7) 01/04/22 15:48 Albumin 3.4 g/dL (3.5-5.2) L 01/04/22 15:48 Globulin 4.7 g/dL (1.3-4.6) H 01/04/22 15:48 Urine Color Straw (Yellow) 01/04/22 15:56 Urine Appearance Clear (CLEAR) 01/04/22 15:56 Urine pH 6 (5-7) 01/04/22 15:56 Ur Specific [employer] 1.005 (1.005-1.030) 01/04/22 15:56 Urine Protein Neg (Negative) 01/04/22 15:56 Urine Glucose (UA) Norm (Normal) 01/04/22 15:56 Urine Ketones Negative (Negative) 01/04/22 15:56 Urine Blood Neg (Negative) 01/04/22 15:56 Urine Nitrate Negative (Negative) 01/04/22 15:56 Urine Bilirubin Neg (Negative) 01/04/22 15:56 Urine Urobilinogen Norm mg/dL (Negative) 01/04/22 15:56 Ur Leukocyte Esterase 1+ (Negative) H 01/04/22 15:56 Urine RBC None /hpf (0-2) 01/04/22 15:56 Urine WBC 5-10 /hpf (0-5) H 01/04/22 15:56 Ur Squamous Epith Cells 0-4 /hpf (0-5) H 01/04/22 15:56 Amorphous Sediment Not Reportable 01/04/22 15:56 Urine Bacteria 1+ /hpf (NONE) H 01/04/22 15:56 Ethyl Alcohol < 10 mg/dL (0-10) 01/04/22 15:48 Discharge Plan Discharge Patient Disposition: Admitted As Inpatient Clinical Impression: Cellulitis, Altered mental status Condition: Stable Coding Level of Care Code ED Miller Apprentice for [employer] Fwd Exam Comprehensive
--- NOTE | 2022-01-04 14:38 | CTR_ITS ---
PROCEDURE INFORMATION: Exam: CT Abdomen And Pelvis With Contrast Exam date and time: 01/04/2022 4:50 PM Age: 86 years old Clinical indication: Abdominal pain; Generalized; Additional info: Generalized abd pain TECHNIQUE: Imaging protocol: Computed tomography of the abdomen and pelvis with contrast. Radiation optimization: All CT scans at this facility use at least one of these dose optimization techniques: automated exposure control; mA and/or kV adjustment per patient size (includes targeted exams where dose is matched to clinical indication); or iterative reconstruction. Contrast material: VISI 320; Contrast volume: 95 ml; Contrast route: INTRAVENOUS (IV); COMPARISON: CT Abdomen/Pelvis Renal [id number] 08/31/2015 8:46 PM RADIATION DOSE METRICS: Total DLP (mGy-cm): 1137.23 FINDINGS: Pleural spaces: Increasing calcifications in the pleura of the right hemithorax that could be due to asbestos related pleural disease versus prior infection. Interval development of a moderate right pleural effusion with right lower lobe compressive atelectasis. Heart: Stable moderate enlargement of the cardiac silhouette. Moderate atherosclerotic calcification in the visualized coronary arteries. The patient has a prosthetic aortic valve. Liver: Stable nodular contour of the liver. Gallbladder and bile ducts: The patient has had an interval cholecystectomy. Dilatation of the biliary ducts, not unexpected in a patient who has had a prior cholecystectomy. Pancreas: The pancreas is unremarkable. No pancreatic ductal dilatation. Spleen: The spleen is unremarkable. Adrenal glands: The right and left adrenal glands are unremarkable. Kidneys and ureters: The right kidney is unremarkable. Two cysts in the left kidney, the larger is increased in size and now measures 1.9 cm (series 3, image 32). The right and left ureters are unremarkable. Stomach and bowel: Numerous diverticula in the sigmoid colon, findings are stable. No evidence for diverticulitis. The stomach is collapsed, which can limit evaluation. No focal abnormality in the stomach otherwise. No acute abnormality in the small bowel. Appendix: Appendix not definitely visualized. No inflammatory changes in the pericecal region however. Intraperitoneal space: Interval development of a small amount of free fluid in the pelvis. No free intraperitoneal air. No loculated fluid collections to suggest an abscess. 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 Stable moderate atherosclerotic calcifications in the visualized arteries. No evidence for aortic aneurysm or aortic dissection. Hepatic veins, portal veins, splenic vein, and SMV are patent. Lymph nodes: No lymphadenopathy. Urinary bladder: The bladder is unremarkable. Reproductive: Stable changes consistent with a previous hysterectomy. The ovaries are not definitely visualized, not an expected in a postmenopausal female. This may be due to ovarian atrophy. Alternatively, the patient may have had a previous bilateral oophorectomy. Bones/joints: Bones are diffusely osteopenic. Degenerative changes in the spine and hips. Soft tissues: No acute abnormality in the extra-abdominal soft tissues. Interval development of moderate body wall edema. CT/CT abdomen pelvis w con* [id number] IMPRESSION: 1. Interval development of a moderate right pleural effusion with right lower lobe compressive atelectasis. 2. Interval development of a small amount of free fluid in the pelvis. 3. Interval development of moderate body wall edema. 4. Increasing calcifications in the pleura of the right hemithorax that could be due to asbestos related pleural disease versus prior infection. 5. 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 6. Stable nodular contour of the liver. 7. The patient has had an interval cholecystectomy. 8. Two cysts in the left kidney, the larger is increased in size. 9. Stable sigmoid diverticulosis. No evidence for diverticulitis. 10. Incidental/nonacute findings are listed in the report.
[2022-01-04 15:25] LABS: ABG PCO2 46.7 mmHg (35-45); ABG PH Result 7.41 (7.35-7.45); Arterial Blood Gas Hematocrit 29.2 % (37-47); Base Excess ABG 4.6 mmol/L (-2.0-2.0); Blood Gas Allen Test Pos; Blood Gas Operator Identificat ED; Blood Gas Sample Site Radial, right; Blood Gas Sample Type Arterial; HCO3 ABG 29.8 mmol/L (22-26); Oxygen Device NC
[2022-01-04 15:56] LABS: Basophils # 0.1 10^3/uL (0.0-0.1); Basophils % 0.4 %; Eosinophils % 0.2 %; Hematocrit 30.1 % (37.0-47.0); Hemoglobin 9.7 g/dL (11.5-15.3); Lymphocytes # 0.8 10^3/uL (0.8-4.8); Lymphocytes % 6.3 %; Mean Corpuscular HGB Conc 32.2 g/dL (30.0-36.0); Mean Corpuscular Hemoglobin 29.9 pg (28.0-34.0); Mean Corpuscular Volume 92.9 fl (81-99); Mean Platelet Volume 9.1 fL (7.4-10.4); Monocytes # 1.3 10^3/uL (0.2-0.9); Monocytes % 10.6 %; Neutrophils # 10.21 10^3/uL (1.8-7.7); Neutrophils % 82.1 %; Nucleated Red Blood Cells % 0 %; Platelet Count 398 10^3/cmm (130-400); Red Blood Count 3.24 10^6/uL (4.1-5.3); Red Cell Distribution Width 18.5 % (12.1-15.1); White Blood Count 12.5 10^3/uL (4.0-10.0)
[2022-01-04 16:17] LABS: Alanine Aminotransferase 13 U/L (0-33); Albumin Level 3.4 g/dL (3.5-5.2); Alkaline Phosphatase 80 IU/L (35-105); Anion Gap 18.2 (5-19); Aspartate Amino Transferase 36 U/L (0-32); Blood Urea Nitrogen 77 mg/dL (8-23); Calcium 10.9 mg/dL (8.5-10.5); Carbon Dioxide 27 mmol/L (22-29); Chloride 94 mmol/L (98-107); Globulin 4.7 g/dL (1.3-4.6); Glucose 103 mg/dL (65-115); Magnesium 2.2 mg/dL (1.7-2.3); Osmolality Calculated 301 mOsm/kg (285-295); Potassium 5.2 mmol/L (3.5-5.1); Sodium 134 mmol/L (136-145); Total Bilirubin 0.9 mg/dL (0.15-1.2); Total Protein 8.1 g/dL (6.6-8.7)
[2022-01-04 16:18] LABS: Alcohol Level < 10 mg/dL (0-10)
[2022-01-04 16:22] LABS: Add Urine Culture? No; Add Urine Microscopic? YES; Bacteria Urine 1+ /hpf; Bilirubin Urine Neg (Negative); Blood Urine Neg (Negative); Glucose Urine UA Norm (Normal); Ketones Urine Negative (Negative); Leukocyte Esterase Urine 1+ (Negative); Nitrate Urine Negative (Negative); Protein Urine Neg (Negative); Specific Gravity, Urine 1.005 (1.005-1.030); Squamous Epithelial Cell Urine 0-4 /hpf (0-5); Urine Appearance Clear (CLEAR); Urine Color Straw (Yellow); Urobilinogen Urine Norm (Negative); pH Urine 6 (5-7)
[2022-01-04] MEDS: iodixanol 320 mg/mL 100mL Btl IV (16:59)
[2022-01-04 17:34] LABS: Ammonia 28 umol/L (11-51)
--- NOTE | 2022-01-04 17:51 | PM.HP ---
Providers/Chief Complaint Primary Care Provider: Stephon Lassiter MD Chief Complaint: AMS; TINO WEEPING EDEMA LOWER EXT History of Present Illness Trinity Nassar is a 86 year old female Pleasant elderly female who has history of triple-vessel CABG 2000, status post TAVR 2018, preserved ejection fraction heart failure, A. fib, chronic anticoagulation who is presenting to the hospital for chief complaint of waxing and waning mentation worsening of edema. Patient lives with her son, son and [id number] are her DPOA. They have not noticed any fever. Patient has not complained of chest pain. Positive orthopnea, weight gain, worsening of swelling of bilateral lower extremities. She does have home health services for wound care. Redness and erythema of legs has been getting worse. Patient is eating very poor quality of life. Medication are being administered by the family. No fever, no COVID-related symptoms. Patient is vaccinated. In the ER she was diagnosed with cellulitis, CHF exacerbation, acute on chronic kidney disease A. fib RVR Review of Systems Const: Reports: chills and body aches Eyes: Denies: change in vision ENMT: Denies: throat pain Card: Reports: swelling of feet/ankles and orthopnea Resp: Reports: dyspnea GI: Reports: abdominal pain : Denies: flank pain Musc: Reports: extremity pain Skin/Breast: Reports: rash, erythema, skin tenderness and skin swelling Neuro: Reports: headache(s) Psych: Reports: anxiety Endo: Denies: polyuria Jackson/Lymph: Denies: easy bruising All/Imm: Denies: urticaria Medications/Allergies Home Medications Medication Instructions Recorded Confirmed Last Taken Type albuterol sulfate 90 mcg/actuation 2 puff INHALATION Q6H PRN 08/17/19 01/04/22 Unknown History aerosol inhaler (ProAir HFA) fluticasone propionate 50 2 spray INTRANASAL DAILY PRN 08/17/19 01/04/22 Unknown History mcg/actuation nasal spray,suspension (Flonase Allergy Relief) levothyroxine 125 mcg tablet 125 mcg PO DAILY 08/17/19 01/04/22 01/04/22 History (Synthroid) montelukast 10 mg tablet 10 mg PO DAILY 08/17/19 01/04/22 01/03/22 History omeprazole magnesium 20 mg 20 mg PO DAILY 08/17/19 01/04/22 01/04/22 History tablet,delayed release (Prilosec OTC) pioglitazone 30 mg tablet 30 mg PO DAILY 08/17/19 01/04/22 01/04/22 History venlafaxine 75 mg capsule,extended 75 mg PO DAILY 08/17/19 01/04/22 01/04/22 History release 24 hr (Effexor XR) nitroglycerin 0.4 mg sublingual 0.4 mg SUBLINGUAL Q5M PRN #50 tab 07/31/20 01/04/22 Unknown Rx tablet (Nitrostat) losartan 100 mg tablet 100 mg PO DAILY #90 tab 05/21/21 01/04/22 01/04/22 Rx insulin glargine 100 unit/mL 10 unit SUBCUT DAILY PRN ml 06/09/21 01/04/22 Unknown History subcutaneous solution (Lantus U-100 Insulin) bumetanide 1 mg tablet 1 mg PO BID 09/02/21 01/04/22 01/04/22 History ropinirole 0.25 mg tablet 0.5 mg PO BEDTIME 09/02/21 01/04/22 01/03/22 History diltiazem HCl 120 mg 120 mg PO DAILY #90 cap 09/03/21 01/04/22 01/04/22 Rx capsule,extended release 24 hr albuterol sulfate 2.5 mg INHALATION Q4H PRN 01/04/22 01/04/22 Unknown History budesonide-formoterol HFA 160 1 puff INHALATION BID 01/04/22 01/04/22 01/04/22 History mcg-4.5 mcg/actuation aerosol inhaler (Symbicort) docusate sodium 100 mg capsule See Rx Instructions .ROUTE .COMPLEX 01/04/22 01/04/22 01/04/22 History (Colace) doxepin 3 mg tablet 3 mg PO BEDTIME 01/04/22 01/04/22 01/03/22 History fenofibrate nanocrystallized 145 145 mg PO DAILY 01/04/22 01/04/22 01/03/22 History mg tablet hydrocodone 5 mg-acetaminophen 325 1 tab PO BID PRN 01/04/22 01/04/22 01/04/22 History mg tablet metformin 500 mg tablet,extended 500 mg PO DAILY 01/04/22 01/04/22 01/04/22 History release 24 hr nebivolol 5 mg tablet 5 mg PO DAILY 01/04/22 01/04/22 01/04/22 History nortriptyline 10 mg capsule 10 - 20 mg PO BEDTIME 01/04/22 01/04/22 01/03/22 History rosuvastatin 5 mg tablet 5 mg PO BEDTIME 01/04/22 01/04/22 01/03/22 History spironolactone 50 mg tablet 50 mg PO DAILY 01/04/22 01/04/22 01/04/22 History warfarin 3 mg tablet See Rx Instructions .ROUTE .COMPLEX 01/04/22 01/04/22 01/03/22 History Allergies Allergy/AdvReac Type Severity Reaction Status Date / Time atorvastatin [From Lipitor] Allergy Unknown unknown Verified 12/10/21 07:39 ibuprofen Allergy Unknown Unknown Verified 12/10/21 07:39 levofloxacin [From Levaquin] Allergy Unknown unknown Verified 12/10/21 07:39 morphine Allergy Unknown unknown Verified 12/10/21 07:39 Penicillins Allergy Unknown unknown Verified 12/10/21 07:39 Sulfa (Sulfonamide Allergy Unknown unknown Verified 12/10/21 07:39 Antibiotics) PFSH Acute PFSH: Medical History (Updated 01/05/22 @ 07:52 by Cristopher Vega MD) Atherosclerosis of coronary artery of [place] heart without angina pectoris Benign essential HTN Dyslipidemia (high LDL; low HDL) History of nonmelanoma skin cancer SOB (shortness of breath) Surgical History H/O aortic valve replacement H/O: hysterectomy History of bladder repair surgery History of cataract removal with insertion of prosthetic lens Hx of CABG Hx of cholecystectomy Hx of total knee replacement S/P rotator cuff repair S/P TAVR (transcatheter aortic valve replacement) Family History Father CAD (coronary artery disease) Chronic kidney disease (CKD) Diabetes Mother CAD (coronary artery disease) Cancer Sister Diabetes Brother Diabetes Denies family history of Clotting disorder Dementia Suicide Anesthesia complication Bleeding disorder Lung disease Stroke Social History Smoking and tobacco status: former smoker Alcohol intake: never Vitals/I&O/Wt Last Vital Signs Temp 97.6 F 01/04/22 13:39 Pulse 117 H 01/04/22 17:00 Resp 22 H 01/04/22 17:00 BP 150/86 01/04/22 16:01 Pulse Ox 98 01/04/22 17:00 Weight last 48 hrs Weight 111.13 kg Physical Exam Narrative: Patient is laying supine Able to tell me her name, date of , name of her son Anxious appearing No active chest pain or shortness of breath CHF exacerbation signs Bilateral lower extremity edema Nonpurulent cellulitis of bilateral lower extremity Skin is sloughing off 3++ pitting edema Extending all the way up to abdominal wall S1, S2 variable Crackles Abdomen soft Nonfocal neuro exam Data : 01/04/22 15:48 01/04/22 15:48 A&P Assessment and plan (1) Cellulitis: Status: Acute (2) Altered mental status: Status: Acute (3) SOB (shortness of breath): Status: Acute (4) CHF exacerbation: Status: Acute (5) Atrial fibrillation with RVR: Status: Acute Plan Preserved ejection fraction heart failure exacerbation Continue diuretics Monitor urine output Strict ins and outs Fluid restriction She also has history of aortic valve replacement Paroxysmal A. fib with RVR Start Cardizem drip She takes Coumadin Acute on chronic kidney disease related to CHF exacerbation Anticipating improvement with diuresis Type 2 diabetes, continue long-acting insulin along sliding scale Nonpurulent cellulitis of bilateral lower extremities Secondary to venous stasis and CHF exacerbation Bacitracin ointment, Kerlix, ABD and Los compression wraps Deconditioned Patient leading a poor quality of life She is DNR/DNI Agreeable to go to alf for rehab Cardiac consistent carb diet And DNR/DNI DVT prophylaxis currently she is on Coumadin Attestations Medical Necessity Statement*: Anticipating more than 2 midnights in the hospital for management of CHF exacerbation and A. fib RVR Time Spent in Patient Care: 40 Coding Level of Care Code Acute Bulb Sorter for Chg Fwd Diagnoses Cellulitis L03.90 Altered mental status R41.82 SOB (shortness of breath) R06.02 CHF exacerbation I50.9 Atrial fibrillation with RVR I48.91
[2022-01-04 18:41] LABS: Procalcitonin 0.25 ng/mL (0-0.5)
--- NOTE | 2022-01-04 18:58 | PC.PHAR ---
Vancomycin is dosed at 1000mg IVPB every 24 hours to produce a predicted trough level of 15.87 (population based pharmacokinetic analysis). A trough level has been ordered from the lab to be obtained before the fourth dose to confirm and adjust if needed.
[2022-01-04 19:23] LABS: Vitamin B12 633 pg/mL (232-1245)
--- NOTE | 2022-01-04 19:25 | PC.NURSE ---
Patient arrived to floor via stretcher and used air mattress to slide with 4 ppl at bedside. Family at bedside and able to answer questions. Patient is AAOx4 but not compliant in wanting to answer questions at this time and is requesting to be left alone. Patient has BLE weeping with pitting edema, elevated. Wearing oxygen tubing. During undress and access patient found to have a stage two pressure injury to each buttock. Mendieta catheter placed without complications and is patent. Room clean and clutter free and report passed to oncoming nurse.
[2022-01-04] MEDS: metoprolol tartrate 25 mg Tablet PO (19:59)
[2022-01-04] MEDS: bumetanide 0.25 mg/mL SDV 4 mL 1 MG IVP (20:05)
[2022-01-04] MEDS: aztreonam 1,000 MG in sodium chloride 0.9% (plus) 50 ML 100 MG IV (20:08)
--- NOTE | 2022-01-04 20:17 | PC.NURSE ---
HR/CARDIZEM DRIP Pt was placed on equipment monitor phototypesetting. HR A-fib with rate ranging from 105-115. Just gave dose of po Metoprolol. If rate continues >110 will be started on a Cardizem drip ordered as needed
[2022-01-04] MEDS: vancomycin 1,000 MG in sodium chloride 0.9% 250 ML 250 MG IV (21:06)
[2022-01-04 22:02] LABS: Glucose Point of Care 115 mg/dL (70-110)
--- NOTE | 2022-01-04 22:31 | ECG_ITS ---
[facility] Test Date: 2022-01-04 Pat Name: Trinity Nassar Department: Room: 252 Gender: Female Trial Judge: : 1935 Requested By: Brain Fields Order Number: [id number] Ned MD: Danilo Lam M.D. Measurements Intervals Sharon Rate: 114 P: UT: QRS: 96 QRSD: 132 T: -36 QT: 321 QTc: 443 Interpretive Statements ATRIAL FIBRILLATION WITH RAPID VENTRICULAR RESPONSE BORDERLINE RIGHT AXIS DEVIATION [QRS AXIS > 90] INTRAVENTRICULAR CONDUCTION DELAY [130+ ms QRS DURATION] ANTEROSEPTAL MYOCARDIAL INFARCTION , OF INDETERMINATE AGE [40+ ms Q WAVE IN V1-V4] Compared to ECG 08/24/2018 19:35:19 Intraventricular conduction delay now present Sinus rhythm no longer present Myocardial infarct finding still present Electronically Signed On 01-05-2022 21:01:01 CDT by Danilo Lam M.D. [id number]
[2022-01-04] MEDS: dilTIAZem 5 mg/mL SDV 5 mL 10 MG IVP (23:04)
--- NOTE | 2022-01-04 23:11 | PC.NURSE ---
UPDATE HR Dr Fields was notified of pts HR continuing to run >110. Is mostly 110-124. Is asyptomatic. EKG was done to confirm A-fib. Telemetry strip looks like ST at times. EKG did show A-fib and pt was given 10mg of IV Cardizem instead of drip at this time. Will continue to monitor
[2022-01-05] VITALS (10 sets, daily range): BP systolic 101–139; BP diastolic 57–87; PULSE 85–121; RESP 14–33; TEMP 36.1–38.1; O2SAT 93–100
[2022-01-05] MEDS: haloperidol inj 5 mg/mL INJ 1 mL 2 MG IM (00:36)
--- NOTE | 2022-01-05 00:39 | PC.NURSE ---
UPDATE HR cont around 120. Has been agitated and is quite confused. Talks to self and calls out for her children. Wants to go home. Order was received for a dose of IM Haldol to see if will help HR. If still >110 in an hour we will repeat Cardizem IV dose then if in another hour remains >110 will start the Cardizem drip
[2022-01-05] MEDS: dilTIAZem 5 mg/mL SDV 5 mL 10 MG IVP (01:49)
--- NOTE | 2022-01-05 02:34 | PC.NURSE ---
UPDATE HR has continued to be >110 after 2nd IV Cardizem dose. Rested for brief time after receiving the IM Haldol but awake now and is very confused. Wants to go home. Says she needs someone to help her get up and go. Attempts to reorient to time and place are unsuccessful. Just starts saying please come help me up, I need to go home over and over. Report given to CSU nurse and preparing to transfer to room 275 for start of Cardizem drip
[2022-01-05] MEDS: haloperidol inj 5 mg/mL INJ 1 mL 1 MG IVP ×2 (04:54→10:57)
[2022-01-05] MEDS: aztreonam 1,000 MG in sodium chloride 0.9% (plus) 50 ML 100 MG IV ×2 (05:46→18:19)
[2022-01-05 06:28] LABS: Glucose Point of Care 93 mg/dL (70-110)
--- NOTE | 2022-01-05 06:33 | PC.NURSE ---
CALL TO FAMILY Call to pts daughter Bruna this am to update on mothers new room number and reason for move
[2022-01-05 09:30] LABS: Basophils % 0.2 %; Hematocrit 28.4 % (37.0-47.0); Hemoglobin 8.6 g/dL (11.5-15.3); Lymphocytes # 0.6 10^3/uL (0.8-4.8); Lymphocytes % 4.3 %; Mean Corpuscular HGB Conc 30.3 g/dL (30.0-36.0); Mean Corpuscular Hemoglobin 29.1 pg (28.0-34.0); Mean Corpuscular Volume 95.9 fl (81-99); Mean Platelet Volume 9.1 fL (7.4-10.4); Monocytes # 1.4 10^3/uL (0.2-0.9); Monocytes % 9.3 %; Neutrophils # 12.63 10^3/uL (1.8-7.7); Neutrophils % 85.4 %; Nucleated Red Blood Cells % 0 %; Platelet Count 389 10^3/cmm (130-400); Red Blood Count 2.96 10^6/uL (4.1-5.3); Red Cell Distribution Width 18.8 % (12.1-15.1); White Blood Count 14.8 10^3/uL (4.0-10.0)
[2022-01-05] MEDS: dilTIAZem ER (24HR) 120 mg Capsule PO (09:30)
[2022-01-05] MEDS: metoprolol tartrate 25 mg Tablet PO ×2 (09:30→16:52)
[2022-01-05] MEDS: levothyroxine 125 mcg Tablet PO (09:30)
[2022-01-05] MEDS: bumetanide 1 mg Tablet PO ×2 (09:30→16:52)
[2022-01-05] MEDS: sennosides-docusate Tablet 1 TAB PO ×2 (09:30→16:52)
[2022-01-05 09:48] LABS: INR 2.09 (0.8-1.2)
--- NOTE | 2022-01-05 09:55 | PC.CHAP ---
Pastoral Care Encounter/Spiritual Assessment Type of Contact [] Declined boat worker visit [] Patient/Family/Request visit [] Outpatient visit [] Follow-up visit [] Physician referral [] Code/Alert [x] Routine visit [] Staff referral [] Actively dying [] Patient sleeping [] Family support [] [] Out of room [] Palliative care [] [x] Receiving care in room [] Pre-surgical visit [] Trauma [] Long length of stay [] ICU visit [] Other: Relational/Emotional Strength [] Patient feels connected with others/family/visitors/staff [] Distress [] Loneliness/isolation [] Abandonment Spirituality of Patient [] Person of Mae [] Attends Moravian of their Mae [] Believes in Prayer [] Reads Bible or Judaism materials [] There are Spiritual issues to be addressed Cytogenetic Technician Interventions [] Prayer [] Active listening [] Non-anxious presence [] Spiritual/emotional support [] Crisis/trauma care [] Spiritual counseling [] Bereavement support [] Provided bereavement packet [] Provided Bible/devotional materials [] Provided toy/stuffed animal, coloring book to patient or family member [] Provided Communion [] Anointing/[place] [] Salvation [] Completed spiritual assessment [] Other: Impact on Illness or Injury [] Angry [] Fearful [] Anxious [] Often cries [] Exhaustion [] Unable to work [] Unable to attend sabianist [] Unable to walk/stand [] Unable to read [] Unable to drive [] Unable to eat/drink [] Unable to sleep [] Unable to be with family [] Patient intubated [] Other: Summary Time spent with patient
[2022-01-05 10:04] LABS: Anion Gap 21.6 (5-19); Blood Urea Nitrogen 70 mg/dL (8-23); Calcium 10.5 mg/dL (8.5-10.5); Carbon Dioxide 22 mmol/L (22-29); Chloride 93 mmol/L (98-107); Glucose 87 mg/dL (65-115); Osmolality Calculated 294 mOsm/kg (285-295); Potassium 4.6 mmol/L (3.5-5.1); Sodium 132 mmol/L (136-145)
--- NOTE | 2022-01-05 12:54 | PM.PN ---
Subjective Subjective: This morning patient was asking for her children to be around her I did call her [id number] and her son to update them Cardizem drip is currently being weaned off heart rate is 87-101 Blood pressure is stable Patient is verbally redirectable She is agitated and stating that she want to go home she has spent enough time in the hospital, When I confronted her and told her that she was just admitted overnight she stated that we guys are making all these kind of statements Vitals/I&O/Wt Last Vital Signs Temp 100.5 F H 01/05/22 04:00 Pulse 101 H 01/05/22 08:00 Resp 18 01/05/22 08:00 BP 125/77 01/05/22 08:00 Pulse Ox 97 01/05/22 08:00 01/04/22 01/05/22 01/05/22 22:59 06:59 14:59 Intake Total 385.417 / 385.417 168 / 168 Output Total 0 / 0 1500 / 1500 Balance 0 / 0 -1114.583 / -1114.583 168 / 168 Weight last 48 hrs Weight 111.13 kg Weight 111.13 kg Physical Exam Narrative: Patient is clinically volume overloaded Currently on 3 to 4 L nasal cannula Edema of her leg slightly improved Hyperemia Currently has [place] wraps Mendieta catheter in place Abdomen soft nontender Currently no audible stridor or wheezing She is verbally redirectable No focal deficit no signs of stroke Urinary Catheter Management: [place]: Cath Placed During This Visit: yes Reason for Continuing Indwelling Catheter: Accurate Measurement of Urinary Output in Critically Ill Patients Urinary Catheter Date of Insertion: 01/04/22 Urinary Catheter Time of Insertion: 18:45 Data : 01/05/22 09:05 01/05/22 09:05 A&P Assessment and plan (1) Atrial fibrillation with RVR: Status: Acute (2) CHF exacerbation: Status: Acute (3) Cellulitis: Status: Acute (4) Altered mental status: Status: Acute (5) S/P TAVR (transcatheter aortic valve replacement): Status: Acute Plan Acute on chronic CHF exacerbation Preserved ejection fraction heart failure exacerbation Continue Bumex 1 mg twice daily Monitor ins and outs Sodium restricted diet Fluid restriction 1200 mL A. fib RVR Cardizem drip being titrated off Will resume her p.o. regimen She takes Coumadin Currently hemodynamically stable Cellulitis of lower extremities I have started her on broad-spectrum antibiotics Low-grade fever noted overnight Kerlix, ABD and compression wraps Dementia? Patient is verbally redirectable Gets agitated easily Prefers to have her children around her B12 is normal, Chronic normocytic anemia hemoglobin stable Leukocytosis I do not believe she is suffering from sepsis This could be leukemoid reaction to her cellulitis INR 2.09 for her Coumadin Cardiac diet DVT prophylaxis sufficed with Coumadin DNR/DNI Attestations Medical Necessity Statement*: Currently patient is awaiting for placement to longterm Time Spent in Patient Care: 30 Coding Level of Care Code Acute Lastex Thread Winder for [facility] Fwd Diagnoses Atrial fibrillation with RVR I48.91 CHF exacerbation I50.9 Cellulitis L03.90 Altered mental status R41.82 S/P TAVR (transcatheter aortic valve replacement) Z95.2
[2022-01-05 13:11] LABS: Glucose Point of Care 116 mg/dL (70-110)
--- NOTE | 2022-01-05 13:48 | PC.PT ---
Eval was attempted. Pt was at 120 bpm HR and O2 kept falling below 80% SaO2. Pt refused to try to move due to being too tired. Family in the room asked us to come back so they could motivate her to do something. Will try again another time.
[2022-01-05] MEDS: LORazepam 0.5 mg Tablet 0.25 MG PO ×2 (14:22→19:49)
[2022-01-05 17:09] LABS: Glucose Point of Care 145 mg/dL (70-110)
--- NOTE | 2022-01-05 17:10 | PC.PT ---
Attempted eval a second time and patient is the same with nurse in the room. Pt's HR was in the 130's and too high to do anything at this time. Will attempt tomorrow.
[2022-01-05] MEDS: insulin lispro 100 unit/1 mL SUBCUT (18:18)
--- NOTE | 2022-01-05 19:35 | PC.NURSE ---
Received bedside report from MARGOTH Ruiz. Performed dressing changes to bilateral lower extremities. Left lower extremity dry with no s/s of bleeding or drainage noted. Right leg appear raw with moderate amount of serous drainage observed. Patient c/o increased pain to right lower extremity with dressing changes. Covered right lower extremity with silver AG dressing, abd, kerlix and ike bandage. Left lower extremity applied abd, kerlix and ike dressing only. Patient tolerated fair. Patient is presenting with increased confusion this night repeating she wants to go home now. Mendieta catheter in placed with noted hematuria. Will continue to monitor.
[2022-01-05] MEDS: quetiapine 25 mg Tablet PO (19:49)
[2022-01-05] MEDS: vancomycin 1,000 MG in sodium chloride 0.9% 250 ML 250 MG IV (19:49)
[2022-01-05 20:15] LABS: Glucose Point of Care 88 mg/dL (70-110)
--- NOTE | 2022-01-05 20:25 | PC.NURSE ---
Found IV pulled out in the covers intact. Patient refusing to have IV replaced at this time. Also presenting with increased confusion. Spoke with patient's son and he mentioned he talked to Dr Vega regarding discharge with hospice. Informed Dr Vega of loss of IV and patient's refusal. Received ok from doctor to leave patient alone and let her rest leaving out IV at this time.
[2022-01-06] VITALS (9 sets, daily range): BP systolic 130–162; BP diastolic 68–87; PULSE 93–121; RESP 11–30; TEMP 36.2–37; O2SAT 96–100
[2022-01-06] MEDS: acetaminophen 500 mg Tablet PO (02:27)
[2022-01-06 08:52] LABS: Basophils % 0.2 %; Eosinophils # 0.2 10^3/uL (0.0-0.8); Eosinophils % 0.7 %; Hematocrit 24.5 % (37.0-47.0); Hemoglobin 8.3 g/dL (11.5-15.3); Lymphocytes # 0.8 10^3/uL (0.8-4.8); Mean Corpuscular HGB Conc 33.9 g/dL (30.0-36.0); Mean Corpuscular Hemoglobin 29.7 pg (28.0-34.0); Mean Corpuscular Volume 87.8 fl (81-99); Monocytes # 1.6 10^3/uL (0.2-0.9); Monocytes % 7.9 %; Neutrophils # 17.89 10^3/uL (1.8-7.7); Neutrophils % 86.6 %; Nucleated Red Blood Cells % 0 %; Platelet Count 366 10^3/cmm (130-400); Red Blood Count 2.79 10^6/uL (4.1-5.3); Red Cell Distribution Width 17.6 % (12.1-15.1); White Blood Count 20.7 10^3/uL (4.0-10.0)
[2022-01-06 09:02] LABS: INR 2.45 (0.8-1.2)
[2022-01-06] MEDS: dilTIAZem ER (24HR) 120 mg Capsule PO (09:11)
[2022-01-06] MEDS: metoprolol tartrate 25 mg Tablet PO ×2 (09:11→18:04)
[2022-01-06] MEDS: levothyroxine 125 mcg Tablet PO (09:11)
[2022-01-06] MEDS: sennosides-docusate Tablet 1 TAB PO ×2 (09:12→18:04)
[2022-01-06] MEDS: bumetanide 1 mg Tablet PO ×2 (09:12→18:04)
[2022-01-06 09:17] LABS: Anion Gap 18.3 (5-19); Blood Urea Nitrogen 71 mg/dL (8-23); Calcium 10.2 mg/dL (8.5-10.5); Carbon Dioxide 24 mmol/L (22-29); Chloride 95 mmol/L (98-107); Glucose 83 mg/dL (65-115); Osmolality Calculated 296 mOsm/kg (285-295); Potassium 4.3 mmol/L (3.5-5.1); Sodium 133 mmol/L (136-145)
--- NOTE | 2022-01-06 10:28 | PC.OT ---
PATIENT DISCHARGING HOME ON HOSPICE. REMOVE FROM OT SERVICES AT THIS TIME
--- NOTE | 2022-01-06 11:53 | PM.PN ---
Subjective Subjective: [place] brown urine Afebrile Leukocytosis worsening Creatinine 1.3 Patient and her family are leaning towards hospice care at home store loss prevention manager has been updated Patient is sitting her abdominal pain has improved after bowel movement Vitals/I&O/Wt Last Vital Signs Temp 98.6 F 01/06/22 11:34 Pulse 106 H 01/06/22 11:34 Resp 26 H 01/06/22 11:34 BP 162/87 01/06/22 11:34 Pulse Ox 100 01/06/22 11:34 01/05/22 01/06/22 01/06/22 22:59 06:59 14:59 Intake Total 534.833 / 702.833 120 / 120 Output Total 600 / 600 400 / 1000 600 / 600 Balance -65.167 / 102.833 -400 / -297.167 -480 / -480 Weight last 48 hrs Weight 111.13 kg Weight 111.13 kg Physical Exam Narrative: Patient is laying supine Mild signs of fluid overload Variable S1-S2 Abdomen is soft No audible stridor mild crackles at base of the lungs Edema of legs improving [place] brown urine Patient is awake and alert oriented able to communicate Urinary Catheter Management: Mendieta: Cath Placed During This Visit: yes Reason for Continuing Indwelling Catheter: Acute Urinary Retention or Obstruction Urinary Catheter Date of Insertion: 01/04/22 Urinary Catheter Time of Insertion: 18:45 Data : 01/06/22 08:10 01/06/22 08:10 Micro: Microbiology 01/05/22 13:00 C.difficile Toxin B Gene (PCR) - Final Stool A&P Assessment and plan (1) Atrial fibrillation with RVR: Status: Acute (2) CHF exacerbation: Status: Acute (3) Cellulitis: Status: Acute (4) Altered mental status: Status: Acute (5) New onset atrial fibrillation: Status: Acute (6) Hospice care: Status: Acute (7) SOB (shortness of breath): Status: Acute (8) Benign essential HTN: Status: Acute Plan 86-year female who presented with worsening shortness of breath She was being diuresed, secondary to comorbid conditions and her poor quality of life patient and family requested hospice care at home She was treated for preserve ejection fraction heart failure exacerbation I will continue her diuretics [place] brown urine worsening creatinine Monitor her urine color for now, might benefit from manual irrigation Continue her diuretics Afebrile Leukocytosis worsened I will continue antibiotics until she is released from the hospital A. fib without RVR holding Coumadin because of hematuria Dementia? Mentation is better today No active metabolic encephalopathy Patient is requesting hospice care at home Will be to resume her medications until she is released from the hospital store loss prevention manager aware Attestations Medical Necessity Statement*: Hospice care at home Time Spent in Patient Care: 30 Coding Level of Care Code Acute Weigh Boss for g Fwd Diagnoses Atrial fibrillation with RVR I48.91 CHF exacerbation I50.9 Cellulitis L03.90 Altered mental status R41.82 New onset atrial fibrillation I48.91 Hospice care Z51.5 SOB (shortness of breath) R06.02 Benign essential HTN I10
[2022-01-06] MEDS: insulin lispro 100 unit/1 mL SUBCUT (13:08)
[2022-01-06 17:21] LABS: Glucose Point of Care 115 mg/dL (70-110)
[2022-01-06 20:12] LABS: Glucose Point of Care 164 mg/dL (70-110)
[2022-01-06] MEDS: quetiapine 25 mg Tablet PO (20:30)
[2022-01-07 04:00] VITALS: BP 159/86; PULSE 125; RESP 19; TEMP 36.6; O2SAT 98
[2022-01-07 06:22] LABS: Glucose Point of Care 128 mg/dL (70-110)
--- NOTE | 2022-01-07 07:10 | PC.NURSE ---
Report received from Kaye Hutchins LPN.
[2022-01-07 07:16] LABS: Glucose Point of Care 180 mg/dL (70-110)
[2022-01-07 07:16] LABS: Glucose Point of Care 98 mg/dL (70-110)
[2022-01-07 08:00] VITALS: BP 161/79; PULSE 112; RESP 12; TEMP 36.8; O2SAT 99
[2022-01-07] MEDS: dilTIAZem ER (24HR) 120 mg Capsule PO (08:13)
[2022-01-07] MEDS: bumetanide 1 mg Tablet PO (08:13)
[2022-01-07] MEDS: metoprolol tartrate 25 mg Tablet PO (08:13)
[2022-01-07] MEDS: sennosides-docusate Tablet 1 TAB PO (08:13)
[2022-01-07] MEDS: levothyroxine 125 mcg Tablet PO (08:13)
--- NOTE | 2022-01-07 08:34 | PM.DCS ---
Discharge Providers Date of Admission: 01/04/22 17:32 Date of Discharge: January 07, 2022 Attending Provider at Admission: Cristopher Vega MD Attending Provider at Discharge: Cristopher Vega MD Primary Care Provider: Stephon Lassiter MD Diagnoses at Discharge Discharge Diagnosis (1) Atrial fibrillation with RVR: Status: Acute (2) CHF exacerbation: Status: Acute (3) Cellulitis: Status: Acute (4) Altered mental status: Status: Acute (5) New onset atrial fibrillation: Status: Acute (6) Hospice care: Status: Acute (7) SOB (shortness of breath): Status: Acute (8) Benign essential HTN: Status: Acute Reason for Visit Reason for Visit: AMS; TINO WEEPING EDEMA LOWER EXT Hospital Course Hospital Course 86-year-old female who presented to the hospital for worsening of shortness of breath and weakness. She was diagnosed with preserved ejection fraction heart exacerbation, A. fib RVR acute on chronic kidney disease and nonpurulent cellulitis of bilateral lower extremities. She is extremely deconditioned, family is not able to take care of her anymore. She was diuresed aggressively which improved edema of her legs, her A. fib RVR was controlled with Cardizem drip intermittently, her Coumadin was continued which she was taking for heart valve and A. fib. Patient and her family after long discussion decided to opt for hospice care at home. Patient has multiple comorbid conditions, she is not actively dying but her prognosis would be poor for months to a year. I would recommend continuing her AV robbie blocking agent, albuterol, and other medications to keep her comfortable. This can be discontinued on patient's and family's discretion. I will discontinue her Coumadin. No need of frequent INR checks. Physical Exam Narrative: Patient is laying supine asking to go home, very anxious Mild signs of fluid overload Variable S1-S2 Abdomen is soft No audible stridor mild crackles at base of the lungs Edema of legs improving [place] brown urine Awake and alert Urine color improved from muddy brown to dark yellow Urinary Catheter Management: [place]: Cath Placed During This Visit: yes Reason for Continuing Indwelling Catheter: Hospice/Comfort/Palliative Care Urinary Catheter Date of Insertion: 01/04/22 Urinary Catheter Time of Insertion: 18:45 Discharge Data Studies Completed and Pending Completed Studies During Hospitalization Category Date Time Status CT abdomen pelvis w con* [id number] Urgent Cat Scan 01/04/22 14:[address] head wo con* [id number] Urgent Cat Scan 01/04/22 14:09 Completed XR chest 1V portable [id number] Urgent Exams 01/04/22 14:09 Completed Pending at discharge Category Date Time Status Vancomycin Trough Timed Lab 01/07/22 18:00 Ordered Radiology Impressions Chest X-Ray 01/04/22 14:09 IMPRESSION: 1. Interval development of mild interstitial pulmonary edema with a moderate right pleural effusion with pleural fluid extending along the right lateral hemithorax and compressive atelectasis in the right lower lobe. 2. Incidental/nonacute findings are listed in the report. Head CT 01/04/22 14:09 IMPRESSION: No acute intracranial findings. Abdomen/Pelvis CT 01/04/22 14:38 IMPRESSION: 1. Interval development of a moderate right pleural effusion with right lower lobe compressive atelectasis. 2. Interval development of a small amount of free fluid in the pelvis. 3. Interval development of moderate body wall edema. 4. Increasing calcifications in the pleura of the right hemithorax that could be due to asbestos related pleural disease versus prior infection. 5. 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 6. Stable nodular contour of the liver. 7. The patient has had an interval cholecystectomy. 8. Two cysts in the left kidney, the larger is increased in size. 9. Stable sigmoid diverticulosis. No evidence for diverticulitis. 10. Incidental/nonacute findings are listed in the report. Laboratory Results WBC 20.7 10^3/uL (4.0-10.0) H 01/06/22 08:10 RBC 2.79 10^6/uL (4.1-5.3) L 01/06/22 08:10 Hgb 8.3 g/dL (11.5-15.3) L 01/06/22 08:10 Hct 24.5 % (37.0-47.0) L 01/06/22 08:10 MCV 87.8 fl (81-99) D 01/06/22 08:10 MCH 29.7 pg (28.0-34.0) 01/06/22 08:10 MCHC 33.9 g/dL (30.0-36.0) D 01/06/22 08:10 RDW 17.6 % (12.1-15.1) H 01/06/22 08:10 Plt Count 366 10^3/cmm (130-400) 01/06/22 08:10 MPV 9.0 fL (7.4-10.4) 01/06/22 08:10 Neut % (Auto) 86.6 % 01/06/22 08:10 Lymph % (Auto) 4.0 % 01/06/22 08:10 [place] % (Auto) 7.9 % 01/06/22 08:10 Eos % (Auto) 0.7 % 01/06/22 08:10 Baso % (Auto) 0.2 % 01/06/22 08:10 Neut # (Auto) 17.89 10^3/uL (1.8-7.7) H 01/06/22 08:10 Lymph # (Auto) 0.8 10^3/uL (0.8-4.8) 01/06/22 08:10 [place] # (Auto) 1.6 10^3/uL (0.2-0.9) H 01/06/22 08:10 Eos # (Auto) 0.2 10^3/uL (0.0-0.8) 01/06/22 08:10 Baso # (Auto) 0.0 10^3/uL (0.0-0.1) 01/06/22 08:10 Nucleated RBC % (auto) 0 % 01/06/22 08:10 Nucleated RBCs # 0.0 /100WBC 01/06/22 08:10 PT 26.90 SECONDS (12.1-14.9) H 01/06/22 08:10 INR 2.45 (0.8-1.2) H 01/06/22 08:10 Specimen Type Arterial 01/04/22 15:14 Sample Site Radial, right 01/04/22 15:14 ABG pH 7.41 (7.35-7.45) 01/04/22 15:14 ABG pCO2 46.7 mmHg (35-45) H 01/04/22 15:14 ABG pO2 210.0 mmHg (80.0-100.0) H 01/04/22 15:14 ABG HCO3 29.8 mmol/L (22-26) H 01/04/22 15:14 ABG Base Excess 4.6 mmol/L (-2.0-2.0) H 01/04/22 15:14 Yon Test Pos 01/04/22 15:14 Hematocrit 29.2 % (37-47) L 01/04/22 15:14 O2 Delivery Device Nc 01/04/22 15:14 O2 Liters/Min 5.0 % 01/04/22 15:14 FiO2 40.0 % 01/04/22 15:14 Veterinarian Assistant ID Ed 01/04/22 15:14 Sodium 133 mmol/L (136-145) L 01/06/22 08:10 Potassium 4.3 mmol/L (3.5-5.1) 01/06/22 08:10 Chloride 95 mmol/L (98-107) L 01/06/22 08:10 Carbon Dioxide 24 mmol/L (22-29) 01/06/22 08:10 Anion Gap 18.3 (5-19) 01/06/22 08:10 BUN 71 mg/dL (8-23) H 01/06/22 08:10 Creatinine 1.3 mg/dL (0.5-0.9) H 01/06/22 08:10 GFR Calculation Not Reportable 01/06/22 08:10 Glucose 83 mg/dL (65-115) 01/06/22 08:10 POC Glucose 128 mg/dL (70-110) H 01/07/22 06:18 Calculated Osmolality 296 mOsm/kg (285-295) H 01/06/22 08:10 Calcium 10.2 mg/dL (8.5-10.5) 01/06/22 08:10 Magnesium 2.0 mg/dL (1.7-2.3) 01/05/22 09:05 Total Bilirubin 0.9 mg/dL (0.15-1.2) 01/04/22 15:48 AST 36 U/L (0-32) H 01/04/22 15:48 ALT 13 U/L (0-33) 01/04/22 15:48 Alkaline Phosphatase 80 IU/L (35-105) 01/04/22 15:48 Ammonia 28 umol/L (11-51) 01/04/22 17:08 Total Protein 8.1 g/dL (6.6-8.7) 01/04/22 15:48 Albumin 3.4 g/dL (3.5-5.2) L 01/04/22 15:48 Globulin 4.7 g/dL (1.3-4.6) H 01/04/22 15:48 Vitamin B12 633 pg/mL (232-1245) 01/04/22 15:45 Procalcitonin 0.25 ng/mL (0-0.5) 01/04/22 15:45 Urine Color Straw (Yellow) 01/04/22 15:56 Urine Appearance Clear (CLEAR) 01/04/22 15:56 Urine pH 6 (5-7) 01/04/22 15:56 Ur Specific [place] 1.005 (1.005-1.030) 01/04/22 15:56 Urine Protein Neg (Negative) 01/04/22 15:56 Urine Glucose (UA) Norm (Normal) 01/04/22 15:56 Urine Ketones Negative (Negative) 01/04/22 15:56 Urine Blood Neg (Negative) 01/04/22 15:56 Urine Nitrate Negative (Negative) 01/04/22 15:56 Urine Bilirubin Neg (Negative) 01/04/22 15:56 Urine Urobilinogen Norm mg/dL (Negative) 01/04/22 15:56 Ur Leukocyte Esterase 1+ (Negative) H 01/04/22 15:56 Urine RBC None /hpf (0-2) 01/04/22 15:56 Urine WBC 5-10 /hpf (0-5) H 01/04/22 15:56 Ur Squamous Epith Cells 0-4 /hpf (0-5) H 01/04/22 15:56 Amorphous Sediment Not Reportable 01/04/22 15:56 Urine Bacteria 1+ /hpf (NONE) H 01/04/22 15:56 Ethyl Alcohol < 10 mg/dL (0-10) 01/04/22 15:48 Vitals Last Vital Signs Temp 98.2 F 01/07/22 08:00 Pulse 112 H 01/07/22 08:00 Resp 12 01/07/22 08:00 BP 161/79 01/07/22 08:00 Pulse Ox 99 01/07/22 08:00 O2 Del Method 01/07/22 08:00 O2 Flow Rate 3 01/06/22 20:00 Discharge Plan Discharge Patient Disposition: Hospice - Home Condition: Fair Prescriptions: Continued levothyroxine [Synthroid] 125 mcg tablet 125 mcg PO DAILY Lantus U-100 Insulin 100 unit/mL solution 10 unit SUBCUT DAILY PRN (Reason: BLOOD SUGAR) ropinirole 0.25 mg tablet 0.5 mg PO BEDTIME bumetanide 1 mg tablet 1 mg PO BID diltiazem HCl 120 mg capsule,extended release 24hr 120 mg PO DAILY Qty: 90 3RF albuterol sulfate 2.5 mg /3 mL (0.083 %) Solution For Nebulization 2.5 mg INHALATION Q4H PRN (Reason: Shortness Of Breath) metformin 500 mg tablet extended release 24 hr 500 mg PO DAILY Symbicort 160-4.5 mcg/actuation Hfa Aerosol Inhaler 1 puff INHALATION BID nebivolol 5 mg tablet 5 mg PO DAILY Discontinued pioglitazone 30 mg tablet 30 mg PO DAILY montelukast 10 mg tablet 10 mg PO DAILY Prilosec OTC 20 mg tablet,delayed release (DR/EC) 20 mg PO DAILY albuterol sulfate [ProAir HFA] 90 mcg/actuation HFA aerosol inhaler 2 puff INHALATION Q6H PRN (Reason: Shortness Of Breath) fluticasone propionate [Flonase Allergy Relief] 50 mcg/actuation spray,suspension 2 spray INTRANASAL DAILY PRN (Reason: Nasal Congestion) venlafaxine [Effexor XR] 75 mg capsule,extended release 24hr 75 mg PO DAILY nitroglycerin [Nitrostat] 0.4 mg tablet, sublingual 0.4 mg SUBLINGUAL Q5M PRN (Reason: chest pain) Qty: 50 1RF losartan 100 mg tablet 100 mg PO DAILY Qty: 90 3RF hydrocodone-acetaminophen 5-325 mg Tablet 1 tab PO BID PRN (Reason: Pain) nortriptyline 10 mg Capsule 10 - 20 mg PO BEDTIME spironolactone 50 mg Tablet 50 mg PO DAILY doxepin 3 mg Tablet 3 mg PO BEDTIME warfarin 3 mg tablet See Rx Instructions .ROUTE .COMPLEX Rx Instructions: 2 MG ORALLY PO MON, WEDS, FRI 1 MG ORALLY PO , , SAT, SUN rosuvastatin 5 mg tablet 5 mg PO BEDTIME fenofibrate nanocrystallized 145 mg tablet 145 mg PO DAILY docusate sodium [Colace] 100 mg Capsule See Rx Instructions .ROUTE .COMPLEX Rx Instructions: 200 mg orally IN THE MORNING / 100 MG ORALLY IN THE EVENING Discharge Orders: Discharge Order (Routine); Ordered 01/07/22 Ordered By: Cristopher Vega Referrals: [facility] [Outside] Stephon Lassiter MD [Primary Care Provider] - Patient Instructions: Hospice Care, Opioid Safety Discharge Attestations Time Spent in Discharge Care*: less than 30 min Quality Metrics Clinical Quality Measures [ No reported AMI, CVA or VTE this stay] Coding Level of Care Code Acute Chg FW DC note Diagnoses Atrial fibrillation with RVR I48.91 CHF exacerbation I50.9 Cellulitis L03.90 Altered mental status R41.82 New onset atrial fibrillation I48.91 Hospice care Z51.5 SOB (shortness of breath) R06.02 Benign essential HTN I10
[2022-01-07] MEDS: ipratropium-albuterol 3 mL Neb INHALATION (08:48)
[2022-01-07 08:50] VITALS: PULSE 111; RESP 26; O2SAT 99
--- NOTE | 2022-01-07 09:02 | PC.SOCIAL ---
Pg 2 IMM Explained to pt's family Pg 2 IMM. No questions voiced. Provided family a copy. Initialed, dated, & timed a copy & placed in chart.
[2022-01-07] MEDS: LORazepam 0.5 mg Tablet 0.25 MG PO (10:49)
[2022-01-07 11:15] LABS: Glucose Point of Care 160 mg/dL (70-110)
[2022-01-07 12:00] VITALS: BP 139/84; PULSE 111; RESP 16; TEMP 36.7; O2SAT 94
[2022-01-07] MEDS: insulin lispro 100 unit/1 mL SUBCUT (12:09)
== END 2022-01-07 13:37 | disposition hospice, home (50) | DRG 291 ==
LOC: ER 17:33 → MEDSURG 17:57
PROVIDERS: Admitting Provider Internal Medicine; Emergency Provider Emergency Medicine; PCP Family Medicine; Visit Provider Internal Medicine
DX: I13.0 Hypertensive heart and chronic kidney disease with heart failure and stage 1 through stage 4 chronic kidney disease, or unspecified chronic kidney disease (principal); I50.33 Acute on chronic diastolic (congestive) heart failure; L03.116 Cellulitis of left lower limb; N17.9 Acute kidney failure, unspecified; L03.115 Cellulitis of right lower limb; I25.10 Atherosclerotic heart disease of native coronary artery without angina pectoris; Z95.1 Presence of aortocoronary bypass graft; N18.9 Chronic kidney disease, unspecified; E11.22 Type 2 diabetes mellitus with diabetic chronic kidney disease; E78.5 Hyperlipidemia, unspecified; Z85.828 Personal history of other malignant neoplasm of skin; Z95.2 Presence of prosthetic heart valve; Z87.891 Personal history of nicotine dependence; I48.0 Paroxysmal atrial fibrillation; I87.8 Other specified disorders of veins; Z66 Do not resuscitate; D63.1 Anemia in chronic kidney disease; R41.82 Altered mental status, unspecified; Z79.4 Long term (current) use of insulin; Z79.51 Long term (current) use of inhaled steroids; Z79.84 Long term (current) use of oral hypoglycemic drugs
CPT/HCPCS: 36415; 36416; 36600; 51702; 70450; 71045; 74177; 80048; 80053; 80307; 81001; 82140; 82607; 82803; 82962; 83735; 84145; 85025; 85610; 87493; 93005; 94640; 96365; 96372; 97167; 97535; 99285; J1630; J1815; J3370; J3490; J7050; Q9967